=== PATIENT | female | born 1975 | race Caucasian/White ===

== ENCOUNTER → 2019-11-06 13:49 | Outpatient (CLI) | payer BC, SELFPAY ==
--- NOTE | ~2019-11-06 | MM_ITS ---
EXAMINATION: MM screening [facility] BI w [facility]ina HISTORY: Screening mammogram TECHNIQUE: Craniocaudal and mediolateral oblique 3-D tomosynthesis images were obtained and synthetic 2-D images were generated. CAD analysis was submitted and interpreted. COMPARISON: 12/03/2018, 10/24/2017, 09/29/2016 BREAST PARENCHYMAL COMPOSITION: There are scattered areas of fibroglandular density. FINDINGS: There is no evidence of suspicious mass, calcification, or architectural distortion to sugg est malignancy in either breast. There has been no suspicious interval change. IMPRESSION: 1. No mammographic evidence of malignancy. 2. Recommend routine screening mammography in one year. BI-RADS Category 1: Negative Reviewed, dictated and finalized at location B.
== END ==
PROVIDERS: PCP Family Medicine; Visit Provider Obstetrics & Gynecology
DX: Z12.31 Encounter for screening mammogram for malignant neoplasm of breast (principal)
CPT/HCPCS: 77063; 77067

== ENCOUNTER 2019-12-09 16:26 | Emergency (ER) | payer BC, MEDICAID, SELFPAY ==
--- NOTE | ~2019-12-09 | CT_ITS ---
EXAMINATION: CT abdomen pelvis w con DATE: 12/09/2019 17:31 INDICATION: Right upper quadrant abdominal pain TECHNIQUE: Computed tomography (CT) of the abdomen and pelvis was performed with 100 cc Omnipaque 350 intravenous contrast. Automated exposure control and iterative reconstruction technique were employe d. Exam dose: 410.11 mGy-cm total exam DLP. COMPARISON: None. FINDINGS: The lung bases are clear. Normal heart size. No pericardial or pleural effusion. Status post cholecystectomy. No hepatic, splenic, pancreatic, adrenal or renal space-occupying mass l esion is evident. There is a pinpoint nonobstructing right renal calculus. No ureteral calculus or hy droureteronephrosis is detected. Normal caliber of the abdominal aorta. No intraperitoneal or retroperitoneal or pelvic mass lesion or adenopathy or ascites. No bowel obstruction, bowel wall thickening, pneumatosis or intraperitoneal free air. Normal appendix. The uterus, adnexal areas and urinary bladder are unremarkable. Included skeletal structures are unremarkable. IMPRESSION: Status post cholecystectomy Pinpoint nonobstructing right renal calculus Reviewed, dictated and finalized at Location A. Reviewed, dictated and finalized at location A.
[2019-12-09 16:28] VITALS: BP 132/82; PULSE 93; RESP 18; TEMP 36.2; O2SAT 100
--- NOTE | 2019-12-09 16:52 | ED.ABDPAIN ---
HPI - Abdominal Pain General Chief Complaint: Abdominal Pain Stated Complaint: abd pain Time Seen by Provider: 12/09/19 16:51 History of Present Illness HPI narrative: RUQ abdominal pain for the past 2 weeks. Intermittent. Maybe worse in the evenings. Associated with mild nausea. Feels like the pain before havig her gall bladder removed. She has had episodes of both diarrhea and constipation over that time. No fever, dysuria, hematuria. Related Data Home Medications Medication Instructions Recorded Confirmed ibuprofen 800 mg tablet 800 mg PO TID PRN 04/07/19 11/05/19 ondansetron HCl 4 mg tablet 4 mg PO TID PRN tablet 04/07/19 11/05/19 vortioxetine 20 mg tablet 20 mg PO DAILY tablet 04/07/19 11/05/19 Allergies Allergy/AdvReac Type Severity Reaction Status Date / Time latex AdvReac Mild REDNESS/RASH Verified 12/09/19 16:48 WITH LATEX TAPE Review of Systems Review of Systems: All systems reviewed & are unremarkable except as noted in HPI and below Constitutional: Constitutional: Denies fever(s) Cardiovascular: Cardiovascular: Denies chest pain Respiratory: Respiratory: Denies dyspnea Gastrointestinal: Gastrointestinal: Reports abdominal pain, Reports constipation, Reports diarrhea, Reports nausea and Denies vomiting Genitourinary: Genitourinary: Denies hematuria and Denies dysuria Neurologic: Denies numbness and Denies weakness PMFSH Surgical History Surgical History Hx of cholecystectomy Family History Family History Grandparent Diabetes mellitus, Onset Age: 77 Depression, Onset Age: 79 Family history of rheumatoid arthritis Family history of cardiovascular disease Acute myocardial infarction Cerebrovascular accident, Onset Age: 77 Family history of Alzheimer's disease, Onset Age: 82 Family history of lung cancer Family history of dementia Family history of lupus erythematosus Mother Family history of cardiovascular disease Family history of arthritis Father Family history of arthritis Social History Social History Smoking status: Current every day smoker Alcohol intake: current Gender identity (if verbalized by the patient): Female Exam Const: General: healthy appearing, no acute distress and alert Orientation/consciousness: patient oriented x3 HENMT: Head: normal to inspection Neck: Neck: normal visual inspection and no lymphadenopathy Chest: Chest palpation & inspection: no tenderness Resp: Effort & Inspection: normal respiratory effort Auscultation: clear to auscultation bilaterally, no rales, no rhonchi and no wheezes Cardio: Jugular venous distension: no JVD Rate: regular rate Rhythm: regular rhythm Heart sounds: no murmurs GI: Inspection: non-distended GI Palp: Yes Soft to palpation, Yes Tenderness to palpation present (GI) (RUQ), No Guarding due to palpation present (GI) and No Rebound tenderness present Skin: General skin exam: normal color Neuro: General: patient oriented x3 and moves all extremities Speech: normal speech Extrem: General: no edema Psych: Appearance: well kempt Affect: normal affect Course Vital Signs Vital signs: Vital Signs Temperature 36.2 C L 12/09/19 16:28 Pulse Rate 93 12/09/19 16:28 Respiratory Rate 18 12/09/19 16:28 Blood Pressure 132/82 12/09/19 16:28 Pulse Oximetry 100 12/09/19 16:28 Temperature 36.2 C L 12/09/19 16:28 Pulse Rate 89 12/09/19 19:03 Respiratory Rate 18 12/09/19 19:03 Blood Pressure 128/72 12/09/19 19:03 Pulse Oximetry 98 12/09/19 19:03 MDM - Abdominal Pain Differential Diagnosis Differential diagnosis: Likely calculus of kidney, constipation and diverticulitis Medical Records Attestation: I reviewed the patient's medical records. Lab Data Attestation: I reviewed the patient's
[2019-12-09 16:58] LABS: Basophils Absolute Auto 0.1 K/mm3 (0.0-0.1); Basophils Percent Auto 0.6 % (0.2-1.2); Eosinophils Percent Auto 0.2 % (0-4.4); Hematocrit 41.6 % (37.0-47.0); Immature Granulocyte Absolute 0.02 K/mm3 (0.00-0.031); Immature Granulocyte Percent A 0.2 % (0-0.5); Lymphocytes Absolute Auto 2.01 K/mm3 (0.9-3.2); Lymphocytes Percent Auto 24.5 % (18.3-44.2); Mean Corpuscular HGB Conc 33.7 g/dl (32-36); Mean Corpuscular Hemoglobin 30.6 pg (26-34); Mean Platelet Volume 9.9 fl (7.4-10.4); Monocytes Absolute Auto 0.4 K/mm3 (0.1-0.6); Monocytes Percent Auto 5.4 % (2.6-8.5); Neutrophils Absolute Auto 5.7 K/mm3 (1.3-6.7); Neutrophils Percent Auto 69.1 % (45.5-73.1); Platelet Count Result 271 k/mm3 (150-375); Red Blood Count 4.57 M/mm3 (4.2-5.4); Red Cell Distribution Width 12.3 % (11.5-14.5); White Blood Count 8.2 K/mm3 (4.5-10.0)
[2019-12-09 17:01] LABS: Add Urine Microscopic? YES; Appearance Urine Clear (Clear); Bilirubin Urine Negative (Negative); Blood Urine Negative (Negative); Color Urine Straw (Yellow); Glucose Urine UA Negative (Negative); Ketones Urine Negative (Negative); Leukocyte Esterase Ur Negative LEU/UL (Negative); Mucus Urine Rare /lpf; Nitrate Urine Negative (Negative); Protein Urine Negative (Negative); Specific Grav Ur 1.008 (1.001-1.035); Squamous Epithelial Cell Urine Rare /hpf (Few); Urobilinogen Urine Negative mg/dL (<2.0); WBC Urine 0-3 /hpf
[2019-12-09 17:08] LABS: Alanine Aminotransferase 22 U/L (4-35); Albumin Level 4.7 g/dL (3.5-5.1); Alkaline Phosphatase 85 U/L (38-126); Anion Gap 9 mmol/L (8-16); Aspartate Amino Transferase 26 U/L (14-36); Bilirubin,Total 0.3 mg/dL (0.2-1.3); Blood Urea Nitrogen 14 mg/dL (7-17); Calcium 9.4 mg/dL (8.4-10.2); Carbon Dioxide 26 mmol/L (22-30); Chloride 104 mmol/L (98-107); Estimated CRCL calculation 60 ml/min; Estimated Glomerular Filt Rate 60; Glucose 101 mg/dL (65-105); Lipase 53 U/L (23-300); Potassium 3.8 mmol/L (3.4-5.0); Sodium 139 mmol/L (137-145)
[2019-12-09 17:18] LABS: Ovalocytes 1+ (NORMAL); Platelet Estimate Adequate (Adequate)
[2019-12-09 19:03] VITALS: BP 128/72; PULSE 89; RESP 18; O2SAT 98
== END 2019-12-09 19:04 | disposition home or self-care (01) ==
PROVIDERS: Emergency Provider Emergency Medicine; PCP Family Medicine
DX: R10.11 Right upper quadrant pain (principal); F17.200 Nicotine dependence, unspecified, uncomplicated; N20.0 Calculus of kidney
CPT/HCPCS: 36415; 74177; 80053; 81001; 81025; 83690; 85025; 99284; Q9967

== ENCOUNTER 2020-03-16 00:25 | Outpatient (CLI) | payer BC, MEDICAID, SELFPAY ==
[2020-03-16 18:51] LABS: SARS-CoV-2 RNA PCR Negative
== END 2020-03-16 00:26 | disposition home or self-care (01) ==
LOC: ANHCOVIDDT 00:25
PROVIDERS: PCP Family Medicine; Visit Provider Internal Medicine Gastroenterology
DX: Z01.812 Encounter for preprocedural laboratory examination (principal); Z20.828 Contact with and (suspected) exposure to other viral communicable diseases
CPT/HCPCS: 87635; C9803; U0003

== ENCOUNTER 2020-03-19 00:38 | Day surgery (SDC) | payer BC, MEDICAID, SELFPAY ==
[2020-03-10 14:03] VITALS: BMI 26.9
[2020-03-19] MEDS: LACTATED RINGERS 1,000 ML 150 ML IV CONT (09:37)
[2020-03-19 09:40] VITALS: BP 127/80; PULSE 91; RESP 22; TEMP 36.4; O2SAT 96
--- NOTE | 2020-03-19 09:45 | WPDANESEPPF ---
Anes - Initial Pre Proc Eval Procedure: Operation Date: 03/19/20 10:30 Proposed Procedures p Esophagogastroduodenoscopy&Screen Colon - Nahid Monroy MD Date/Time: 03/19/20 09:46 Surgeon: Nahid Monroy MD Pre Op Diagnosis: GERD, Neoplasm Screening Patient Data Age: 44 Gender: F Height: 5 ft 4 in Weight: 71 kg Last Vital Signs Temp 97.5 F L 03/19/20 09:40 Pulse 91 03/19/20 09:40 Resp 22 H 03/19/20 09:40 BP 127/80 03/19/20 09:40 Pulse Ox 96 03/19/20 09:40 Allergies Allergy/AdvReac Type Severity Reaction Status Date / Time latex AdvReac Mild REDNESS/RASH Verified 03/19/20 09:18 WITH LATEX TAPE Home Medications Medication Instructions Recorded Confirmed Type ibuprofen 800 mg tablet 800 mg PO TID PRN 04/07/19 03/10/20 History alprazolam 0.5 mg tablet 0.5 mg PO TID PRN #270 tablet 11/05/19 03/10/20 Rx omeprazole 40 mg capsule,delayed 40 mg PO DAILY #90 cap 01/16/20 03/19/20 Rx release vortioxetine 20 mg tablet 20 mg PO DAILY #90 tablet 01/19/20 03/19/20 Rx polyethylene glycol 3350 17 gram 238 g PO DAILY #1 ea 03/09/20 03/10/20 Rx oral powder packet methylphenidate HCl 20 mg PO DAILY PRN 03/10/20 03/10/20 History ondansetron HCl 4 mg PO Q4-5H PRN 03/19/20 03/19/20 History Patient hx anesthesia problems: none Family hx anesthesia problems: none PMFSH Past Medical History Medical History Irritable bowel syndrome with constipation and diarrhea Polyp of colon Tobacco use disorder, continuous Surgical History Surgical History Hx of cholecystectomy Family History Family History Grandparent Diabetes mellitus, Onset Age: 77 Depression, Onset Age: 79 Family history of rheumatoid arthritis Family history of cardiovascular disease Acute myocardial infarction Cerebrovascular accident, Onset Age: 77 Family history of Alzheimer's disease, Onset Age: 82 Family history of lung cancer Family history of dementia Family history of lupus erythematosus Mother Family history of cardiovascular disease Family history of arthritis Father Family history of arthritis Social History Social History Smoking packs per day: 0.5 Smoking cigarettes per day: 10.0 Years smoked: 25 Smoking pack-years: 12.50 Smoking status: Current every day smoker Tobacco type: cigarettes Alcohol intake: current Living arrangements: with family Gender identity (if verbalized by the patient): Female Spiritual care concerns: No Anes - Eval Final PreProcedure Day of Procedure 03/19/20 09:46 Patient weight: normal Heart: regular rate and rhythm Lungs: clear to auscultation Airway: Mallampati scale class II Neurological: alert and oriented Last oral intake: >/= 8 hours ASA classification: II Emergent: no Anesthetic plan: proceed Anesthesia type and monitoring: general GIVS and standard monitoring Informed Consent: The patient's anesthetic plan and its attendant risks and benefits were discussed with the patient/family/POA. Questions were solicited and answers provided to the satisfaction of the patient/family/POA.
--- NOTE | 2020-03-19 10:23 | PM.HPGS ---
History of Present Illness History of Present Illness Consent: Risks, benefits, and alternatives have been discussed and questions answered. Patient agrees to proceed with procedure. Chief complaint: GERD, Neoplasm Screening Narrative: Esther Allan is a 44 year old female with gerd and nausea on ppi but also using excedrin prn, also needs a colonoscopy Review of Systems Constitutional: Constitutional: Denies headache(s) and Denies weakness Eyes: Eyes: Denies blurry vision ENT: Reports Normal hearing present, Denies headache(s) and Denies neck pain Cardiovascular: Cardiovascular: Denies chest pain and Denies dyspnea Respiratory: Respiratory: Denies dyspnea Gastrointestinal: Gastrointestinal: Reports no additional gastrointestinal complaints Genitourinary: Genitourinary: Denies dysuria Musculoskeletal: Musculoskeletal: Denies neck pain Integumentary/Breasts: Skin/Breast: Denies dry skin Neurologic: Reports Normal hearing present, Denies headache(s) and Denies weakness Psychiatric: Psychiatric: Denies anxiety Endocrine: Endocrine: Denies change in body appearance Hematologic/Lymphatic: Hematologic/Lymphatic: Denies easy bleeding Allergic/Immunologic: Allergic/Immunologic: Denies urticaria PMFSH Past Medical History Medical History Irritable bowel syndrome with constipation and diarrhea Polyp of colon Tobacco use disorder, continuous Surgical History Surgical History Hx of cholecystectomy Family History Family History Grandparent Diabetes mellitus, Onset Age: 77 Depression, Onset Age: 79 Family history of rheumatoid arthritis Family history of cardiovascular disease Acute myocardial infarction Cerebrovascular accident, Onset Age: 77 Family history of Alzheimer's disease, Onset Age: 82 Family history of lung cancer Family history of dementia Family history of lupus erythematosus Mother Family history of cardiovascular disease Family history of arthritis Father Family history of arthritis Social History Social History Smoking packs per day: 0.5 Smoking cigarettes per day: 10.0 Years smoked: 25 Smoking pack-years: 12.50 Smoking status: Current every day smoker Tobacco type: cigarettes Alcohol intake: current Living arrangements: with family Gender identity (if verbalized by the patient): Female Spiritual care concerns: No Meds Home Medications and Allergies Home Medications Medication Instructions Recorded Confirmed Type ibuprofen 800 mg tablet 800 mg PO TID PRN 04/07/19 03/10/20 History alprazolam 0.5 mg tablet 0.5 mg PO TID PRN #270 tablet 11/05/19 03/10/20 Rx omeprazole 40 mg capsule,delayed 40 mg PO DAILY #90 cap 01/16/20 03/19/20 Rx release vortioxetine 20 mg tablet 20 mg PO DAILY #90 tablet 01/19/20 03/19/20 Rx polyethylene glycol 3350 17 gram 238 g PO DAILY #1 ea 03/09/20 03/10/20 Rx oral powder packet methylphenidate HCl 20 mg PO DAILY PRN 03/10/20 03/10/20 History ondansetron HCl 4 mg PO Q4-5H PRN 03/19/20 03/19/20 History Allergies Allergy/AdvReac Type Severity Reaction Status Date / Time latex AdvReac Mild REDNESS/RASH Verified 03/19/20 09:18 WITH LATEX TAPE Vital Signs Vital Signs - 24 hr 03/19/20 09:40 Temperature 97.5 F L Pulse Rate 91 Respiratory Rate 22 H Blood Pressure 127/80 Pulse Oximetry 96 Exam Const: General: comfortable and no acute distress HENMT: General nose exam: Normal nares present Eyes: General: appearance normal, both eyes and all related structures Neck: Neck: no JVD Resp: Auscultation: clear to auscultation bilaterally Cardio: Rate: regular rate Rhythm: regular rhythm GI: Inspection: non-distended GI Palp: Yes Soft to palpation Sk
[2020-03-19] MEDS: BENZOCAINE (*SP) 60 ML SPRAY CAN (HURRICAINE) 1 SPRAY MUCOUS MEM (10:24)
[2020-03-19 10:58] VITALS: BP 104/68; PULSE 67; RESP 19; O2SAT 100
[2020-03-19 11:08] VITALS: BP 110/77; PULSE 62; RESP 19; O2SAT 100
== END 2020-03-19 11:49 | disposition home or self-care (01) ==
PROVIDERS: PCP Family Medicine; Visit Provider Internal Medicine Gastroenterology
PROC: 0DJ08ZZ Inspection of Upper Intestinal Tract, Via Natural or Artificial Opening Endoscopic (ICD-10-PCS; CPT 43235; principal; 2020-03-19 10:30)
DX: Z12.11 Encounter for screening for malignant neoplasm of colon (principal); D12.0 Benign neoplasm of cecum; K29.50 Unspecified chronic gastritis without bleeding; K64.8 Other hemorrhoids; K21.9 Gastro-esophageal reflux disease without esophagitis; K58.2 Mixed irritable bowel syndrome; F17.210 Nicotine dependence, cigarettes, uncomplicated
CPT/HCPCS: 45380; 45385; 43239; 88305; J2704; J7120

== ENCOUNTER 2020-04-06 14:16 | Outpatient (CLI) | payer BC, MEDICAID, SELFPAY ==
--- NOTE | ~2020-04-06 | XR_ITS ---
EXAMINATION: XR chest 2V DATE: 04/06/2020 15:00 INDICATION: Tobacco use TECHNIQUE: PA and lateral views of the chest are obtained. COMPARISON: 05/20/2018 FINDINGS: The lungs are free of acute opacities. There is no pleural effusion or pneumothorax. The ca rdiomediastinal silhouette is normal. The visualized bones and soft tissues are unremarkable. IMPRESSION: 1. No acute cardiopulmonary abnormality. Reviewed, dictated and finalized at location A. 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
--- NOTE | 2020-04-06 14:30 | ECG_ITS ---
Measurements Intervals [place] Rate: 80 P: 42 MI: 159 QRS: 31 QRSD: 82 T: 24 QT: 369 QTc: 426 Interpretive Statements SINUS RHYTHM NORMAL ECG Electronically Signed On 04-06-2020 15:52:41 [employer] by Jann Koo D.O.
== END 2020-04-06 14:17 | disposition home or self-care (01) ==
PROVIDERS: PCP Family Medicine; Visit Provider Family Medicine
DX: Z01.818 Encounter for other preprocedural examination (principal); F17.209 Nicotine dependence, unspecified, with unspecified nicotine-induced disorders; M54.2 Cervicalgia; G89.29 Other chronic pain
CPT/HCPCS: 71046; 93005

== ENCOUNTER → 2020-07-07 09:10 | Outpatient (CLI) | payer OTHER, SELFPAY ==
[2020-07-07 23:00] LABS: SARS-CoV-2 RNA PCR Negative
== END ==
PROVIDERS: PCP Family Medicine; Visit Provider Family Medicine
DX: J01.00 Acute maxillary sinusitis, unspecified (principal); Z20.822 Contact with and (suspected) exposure to COVID-19
CPT/HCPCS: C9803; U0003; U0005

== ENCOUNTER 2020-07-07 10:54 | Emergency (ER) | payer OTHER, SELFPAY ==
--- NOTE | 2020-07-07 10:57 | ED.GENADULT ---
HPI - General Adult General Chief complaint: Upper Respiratory Infection Stated complaint: sore throat Time Seen by Provider: 07/07/20 10:56 Source: patient Mode of arrival: ambulatory Limitations: no limitations History of Present Illness HPI narrative: 44-year-old female patient presents to the [facility] with complaints of cold symptoms for the past 3 days. Patient states she has had headache, congestion, runny nose and a sore throat. Denies any fevers, body aches or chills. Patient states she did see her primary doctor yesterday and was given cefdinir. Patient states that she is prone to sinus infections and that her doctor also ordered her Covid test which she had done this morning. Patient states she is coming here today basically requesting a strep test. Related Data Allergies Allergy/AdvReac Type Severity Reaction Status Date / Time latex AdvReac Mild REDNESS/RASH Verified 07/07/20 11:15 WITH LATEX TAPE Review of Systems Review of Systems: Narrative: CONSTITUTIONAL: Denies fever, chills, or sweats. EYES: Denies visual changes, redness, or discharge. ENT: Positive rhinorrhea, congestion, sore throat, denies otalgia. CARDIOVASCULAR: Denies chest pain, palpitations, or edema. RESPIRATORY: Denies cough or dyspnea. GASTROINTESTINAL: Denies abdominal pain, nausea, vomiting, or diarrhea. GENITOURINARY: Denies dysuria or hematuria. SKIN: Denies rash or itching. MUSCULOSKELETAL: Denies back pain, joint pain, or myalgia. NEUROLOGIC: Positive headache, denies numbness, or weakness. PSYCHIATRIC: Denies anxiety or depression. [facility] Past Medical History Medical History Acute non-recurrent maxillary sinusitis BMI 27.0-27.9,adult Chronic constipation Chronic neck pain Gastritis Irritable bowel syndrome with constipation and diarrhea Polyp of colon Preoperative evaluation to rule out surgical contraindication Tobacco use disorder, continuous Surgical History Surgical History Hx of cholecystectomy Family History Family History Grandparent Diabetes mellitus, Onset Age: 77 Depression, Onset Age: 79 Family history of rheumatoid arthritis Family history of cardiovascular disease Acute myocardial infarction Cerebrovascular accident, Onset Age: 77 Family history of Alzheimer's disease, Onset Age: 82 Family history of lung cancer Family history of dementia Family history of lupus erythematosus Mother Family history of cardiovascular disease Family history of arthritis Father Family history of arthritis Social History Social History Smoking packs per day: 0.5 Smoking cigarettes per day: 10.0 Years smoked: 25 Smoking pack-years: 12.50 Smoking status: Current every day smoker Tobacco type: cigarettes Alcohol intake: current Gender identity (if verbalized by the patient): Female Spiritual care concerns: No Comments At the time of my signature I agree with nursing past medical history, surgical, social, and family history. There is no relevant family history pertinent to the presenting complaint. Exam Narrative: Exam Narrative: GENERAL: Well-appearing, well-nourished, and in no acute distress. HEAD: Normocephalic, atraumatic. EYES: PERRLA and EOMI. ENT: Nares with erythema and edema noted bilaterally, no rhinorrhea or epistaxis. Mucous membranes moist. Posterior pharynx with no erythema, tonsillar Darshana, exudates or lesions present. Bilateral TMs are clear no erythema or foreign bodies in the canal. NECK: Supple. No lymphadenopathy CHEST: Clear to auscultation. No respiratory distress. HEART: Regular rate and rhythm. No murmur heard. Normal peripheral pulses. ABDOMEN: Soft, nontender, nondistended, normal active bowel sounds. EXTREMITIES: Normal range of motion.
[2020-07-07 11:19] VITALS: BP 122/87; PULSE 88; RESP 18; TEMP 36.9; O2SAT 96
== END 2020-07-07 11:39 | disposition home or self-care (01) ==
PROVIDERS: Emergency Provider Nurse Practitioner Family; PCP Family Medicine
DX: J02.9 Acute pharyngitis, unspecified (principal); F17.210 Nicotine dependence, cigarettes, uncomplicated
CPT/HCPCS: 87081; 87880; 99213; G0463

== ENCOUNTER 2020-11-08 10:37 | Outpatient (CLI) | payer OTHER, SELFPAY ==
--- NOTE | ~2020-11-08 | MM_ITS ---
EXAMINATION: MM screening [facility] BI w [facility] HISTORY: Screening TECHNIQUE: Craniocaudal and mediolateral oblique 3-D tomosynthesis images were obtained and synthetic 2-D images were generated. CAD analysis was submitted and interpreted. COMPARISON: Comparison to multiple prior studies sequentially, with oldest reviewed study dated 06/24. BREAST PARENCHYMAL COMPOSITION: There are scattered areas of fibroglandular density. FINDINGS: There is no evidence of suspicious mass, calcification, or architectural distortion to sugg est malignancy in either breast. There has been no suspicious interval change. IMPRESSION: 1. No mammographic evidence of malignancy. 2. Recommend routine screening mammography in one year. BI-RADS Category 2: Benign finding(s). Reviewed, dictated and finalized at location A.
== END 2020-11-08 10:38 | disposition home or self-care (01) ==
LOC: ANHIMG 10:39
PROVIDERS: PCP Family Medicine; Visit Provider Obstetrics & Gynecology
DX: Z12.31 Encounter for screening mammogram for malignant neoplasm of breast (principal)
CPT/HCPCS: 77063; 77067

== ENCOUNTER → 2021-02-08 03:34 | Outpatient (CLI) | payer OTHER, SELFPAY ==
[2021-02-08 18:29] LABS: SARS-CoV-2 RNA PCR Negative
== END ==
PROVIDERS: PCP Family Medicine; Visit Provider Family Medicine
DX: R68.89 Other general symptoms and signs (principal); Z20.822 Contact with and (suspected) exposure to COVID-19
CPT/HCPCS: C9803; U0003; U0005

== ENCOUNTER → 2021-02-10 14:35 | Outpatient (CLI) | payer OTHER, SELFPAY ==
--- NOTE | ~2021-02-10 | XR_ITS ---
XR chest 2V DATE: 02/10/2021 14:47 INDICATION: Chronic cough TECHNIQUE: 2 views COMPARISON: 04/06/2022 view chest FINDINGS: Status post surgical interbody spinal fusion at C5-6 and C6-7. Bilateral hyperinflation. There is mild patchy infiltrate in the right mid and lower lung field. The remaining lung coppola appear clear. No pleural effusion or pulmonary vascular congestion or pneumotho rax. Normal heart size. IMPRESSION: Mild patchy infiltrate in the right mid and lower lung zones, suggesting mild pneumonia Reviewed, dictated and finalized at location A. IMPRESSION: Mild patchy infiltrate in the right mid and lower lung zones, sugge sting mild pneumonia
== END ==
PROVIDERS: PCP Family Medicine; Visit Provider Family Medicine
DX: R05.3 Chronic cough (principal); R91.8 Other nonspecific abnormal finding of lung field
CPT/HCPCS: 71046

== ENCOUNTER 2022-02-01 08:25 | Outpatient (CLI) | payer OTHER, SELFPAY ==
--- NOTE | ~2022-02-01 | MM_ITS ---
EXAMINATION: MM screening [facility] BI w raina HISTORY: Screening mammogram TECHNIQUE: Craniocaudal and mediolateral oblique 3-D tomosynthesis images were obtained and synthetic 2-D images were generated. CAD analysis was submitted and interpreted. COMPARISON: 11/08/2020, 11/06/2019, 12/03/2018 BREAST PARENCHYMAL COMPOSITION: The breasts are heterogeneously dense, which may obscure small masses . FINDINGS: No suspicious mass, calcification, or architectural distortion are identified in either nathanael ast to suggest malignancy. There has been no suspicious interval change. IMPRESSION: 1. No mammographic evidence of malignancy. 2. Recommend routine screening mammography in one year. BI-RADS Category 1: Negative Reviewed, dictated and finalized at location A.
== END 2022-02-01 08:26 | disposition home or self-care (01) ==
PROVIDERS: PCP Family Medicine; Visit Provider Obstetrics & Gynecology
DX: Z12.31 Encounter for screening mammogram for malignant neoplasm of breast (principal)
CPT/HCPCS: 77063; 77067

== ENCOUNTER 2022-05-31 11:45 | Emergency (ER) | payer OTHER, SELFPAY ==
[2022-05-31] VITALS (11 sets, daily range): BP systolic 110–141; BP diastolic 72–84; PULSE 81–82; RESP 16; TEMP 36.6; O2SAT 97–100
--- NOTE | ~2022-05-31 | CT_ITS ---
EXAMINATION: CT abdomen pelvis w con DATE: 05/31/2022 14:16 INDICATION: Colitis. TECHNIQUE: Computed tomography (CT) of the abdomen and pelvis was performed with 100 cc Omnipaque 350 intravenous contrast. The dose-length product was 348.84 mGy-cm. Automated exposure control and iter ative reconstruction technique were employed. COMPARISON: CT dated 12/09/2019 FINDINGS: Lung bases are unremarkable. No significant pleural or pericardial effusion. Heart size is normal. There is a benign 7 mm fat-containing lesion in the right hepatic lobe, unchanged. Status pos t cholecystectomy. There is hepatomegaly. The spleen, pancreas, adrenal glands and kidneys are unrema rkable. There is extensive abnormal mural thickening of the descending colon, sigmoid colon and rectu m, consistent with colitis, most likely infectious or inflammatory. No significant vascular abnormali ty. No lymphadenopathy. The celiac axis, SMA, renal arteries and KITTY are widely patent. No free air o r free fluid. IMPRESSION: 1. Significant abnormal mural thickening of the descending colon, sigmoid colon and rectum, consisten t with colitis. Reviewed, dictated and finalized at location B. 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 Significant abnormal mural thickening of the descending colon, sigmoid colon and rectum, consistent with colitis.
--- NOTE | 2022-05-31 13:30 | PC.NURSE ---
EDP at bedside to assess pt.
[2022-05-31 13:34] LABS: Basophils Absolute Auto 0.1 K/mm3 (0.0-0.1); Basophils Percent Auto 1.1 % (0.2-1.2); Eosinophils Absolute Auto 0.1 K/mm3 (0-0.3); Eosinophils Percent Auto 0.8 % (0-4.4); Hematocrit 40.5 % (37.0-47.0); Hemoglobin 13.5 g/dL (12.0-15.0); Immature Granulocyte Absolute 0.03 K/mm3 (0.00-0.031); Immature Granulocyte Percent A 0.4 % (0-0.5); Lymphocytes Percent Auto 13.4 % (18.3-44.2); Mean Corpuscular HGB Conc 33.3 g/dl (32-36); Mean Corpuscular Hemoglobin 29.9 pg (26-34); Mean Corpuscular Volume 89.8 fl (80-100); Mean Platelet Volume 9.6 fl (7.4-10.4); Monocytes Absolute Auto 0.9 K/mm3 (0.1-0.6); Monocytes Percent Auto 11.7 % (2.6-8.5); Neutrophils Absolute Auto 5.4 K/mm3 (1.3-6.7); Neutrophils Percent Auto 72.6 % (45.5-73.1); Platelet Count Result 232 k/mm3 (150-375); Red Blood Count 4.51 M/mm3 (4.2-5.4); Red Cell Distribution Width 13.4 % (11.5-14.5); White Blood Count 7.5 K/mm3 (4.5-10.0)
[2022-05-31 13:36] LABS: Appearance Urine Clear (Clear); Bilirubin Urine Negative (Negative); Blood Urine Trace-lysed (Negative); Color Urine Yellow (Yellow); Glucose Urine UA Negative (Negative); Ketones Urine Negative (Negative); Leukocyte Esterase Ur Negative LEU/UL (Negative); Nitrate Urine Negative (Negative); Protein Urine Negative (Negative); Specific Grav Ur <= 1.005 (1.001-1.035); Urobilinogen Urine 0.2 mg/dL (<2.0); pH Urine 6.5 (5.0-9.0)
[2022-05-31 13:40] LABS: Add Urine Microscopic? YES; RBC Urine 0-2 /hpf (0-2); WBC Urine 0-3 /hpf
[2022-05-31] MEDS: ONDANSETRON INJ 4 MG/2 ML VIAL IV PUSH (13:40)
[2022-05-31] MEDS: SODIUM CHLORIDE 0.9% IV 1,000 ML 150 ML IV CONT (13:40)
[2022-05-31 13:54] LABS: Alanine Aminotransferase 18 U/L (6-35); Albumin Level 4.3 g/dL (3.5-5.1); Alkaline Phosphatase 79 U/L (38-126); Anion Gap 6 mmol/L (8-16); Aspartate Amino Transferase 23 U/L (14-36); Bilirubin,Total 0.4 mg/dL (0.2-1.3); Blood Urea Nitrogen 13 mg/dL (7-17); Calcium 9.3 mg/dL (8.4-10.2); Carbon Dioxide 26 mmol/L (22-30); Chloride 103 mmol/L (98-107); Estimated CRCL calculation 95 ml/min; Estimated Glomerular Filt Rate > 60; Glucose 95 mg/dL (65-110); Lipase 31 U/L (23-300); Potassium 3.4 mmol/L (3.4-5.0); Sodium 135 mmol/L (137-145)
--- NOTE | 2022-05-31 14:51 | ED.ABDPAIN ---
HPI - Abdominal Pain General Chief Complaint: Abdominal Pain Stated Complaint: diarrhea. blood in stool Time Seen by Provider: 05/31/22 13:27 Source: patient Mode of arrival: ambulatory Limitations: no limitations History of Present Illness HPI narrative: 46-year-old otherwise healthy here with complaints of lower abdominal pain, diarrhea for past few days started to have blood in her stool since this morning. She denies any fever or chills. No previous history of diverticulosis or diverticulitis she denies being lightheaded or dizzy. Onset (ago): day(s) (3) Location: suprapubic Severity: mild Quality: aching Radiation: none Migration to: no migration Exacerbating factors: nothing Relieving factors: nothing Associated symptoms: denies other symptoms Related Data Allergies Allergy/AdvReac Type Severity Reaction Status Date / Time latex AdvReac Mild REDNESS/RASH Verified 05/31/22 13:40 WITH LATEX TAPE Review of Systems Review of Systems: All systems reviewed & are unremarkable except as noted in HPI and below Constitutional: Constitutional: Reports no additional constitutional complaints Eyes: Eyes: Reports no additional eye complaints ENT: Reports system reviewed and no additional complaints, except as documented Cardiovascular: Cardiovascular: Reports no additional cardiovascular complaints Respiratory: Respiratory: Reports no additional respiratory complaints Gastrointestinal: Gastrointestinal: Reports as per HPI Musculoskeletal: Musculoskeletal: Reports no additional musculoskeletal complaints Neurologic: Reports system reviewed and no additional complaints, except as documented [facility] Past Medical History Medical History Acute non-recurrent maxillary sinusitis BMI 24.0-24.9, adult BMI 25.0-25.9,adult BMI 27.0-27.9,adult BMI 28.0-28.9,adult Chronic constipation Chronic cough Chest x-ray 02/10/2021 with mild patchy infiltrates right middle lobe and right lower lobe Chronic neck pain Chronic nonallergic rhinitis Community acquired pneumonia (~02/10/21) chest x-ray 02/10/2021 with right middle lobe and right lower lobe patchy infiltrate Fatigue Gastritis (03/19/20) gastritis on EGD 03/19/2020. Irritable bowel syndrome with constipation and diarrhea Low ferritin (02/02/22) iron 57 with 16% saturation and ferritin low at 15 on 02/02/2022 with hemoglobin 14.7. Nausea (~05/30/22) Overweight (BMI 25.0-29.9) Polyp of colon (03/19/20) Colon polyps on colonoscopy 03/19/2020 with recheck in 5 years, Dr. Cowart. Preoperative evaluation to rule out surgical contraindication Protein in urine (02/02/22) 2+ protein on urinalysis 02/02/2022. Seasonal allergic rhinitis Tobacco use disorder, continuous Surgical History Surgical History Hx of cholecystectomy Family History Family History Grandparent Diabetes mellitus, Onset Age: 77 Depression, Onset Age: 79 Family history of rheumatoid arthritis Family history of cardiovascular disease Acute myocardial infarction Cerebrovascular accident, Onset Age: 77 Family history of Alzheimer's disease, Onset Age: 82 Family history of lung cancer Family history of dementia Family history of lupus erythematosus Mother Family history of cardiovascular disease Family history of arthritis Father Family history of arthritis Social History Social History Smoking packs per day: 0.5 Smoking cigarettes per day: 10.0 Years smoked: 25 Smoking pack-years: 12.50 Smoking status: Current every day smoker Tobacco type: cigarettes Alcohol intake: current Living arrangements: with family Gender identity (if verbalized by the patient): Female Spiritual care concerns: No Exam Narrative: GENERAL: Well-appearing, well-nouris
== END 2022-05-31 15:16 | disposition home or self-care (01) ==
PROVIDERS: Emergency Medicine; Emergency Provider Family Medicine; PCP Family Medicine
DX: K52.9 Noninfective gastroenteritis and colitis, unspecified (principal); F17.210 Nicotine dependence, cigarettes, uncomplicated
CPT/HCPCS: 36415; 74177; 80053; 81001; 81025; 83690; 85025; 96361; 96374; 99284; J2405; J7030; Q9967

== ENCOUNTER 2022-06-07 13:26 | Outpatient (CLI) | payer OTHER, SELFPAY ==
--- NOTE | ~2022-06-07 | XR_ITS ---
XR abdomen/kub 1V 06/07/2022 11:31 INDICATION: Abdominal bloating TECHNIQUE: KUB COMPARISON: None FINDINGS: Bowel gas pattern is normal. There is no evidence of free air, mass, organomegaly, ascites or obstruction. No abnormal calculi are seen. The bones appear intact. There are cholecystectomy c lips. IMPRESSION: 1: No acute abdominal abnormality identified. Reviewed, dictated and finalized at location B. 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
[2022-06-07 15:05] LABS: Toxigenic C. Diff NEGATIVE (NEGATIVE)
[2022-06-16 20:37] LABS: Calprotectin, Stool 1530 mcg/g
== END 2022-06-07 13:27 | disposition home or self-care (01) ==
LOC: ANHIMG 13:26
PROVIDERS: PCP Family Medicine; Visit Provider Nurse Practitioner
DX: R14.0 Abdominal distension (gaseous) (principal); K52.9 Noninfective gastroenteritis and colitis, unspecified
CPT/HCPCS: 74018; 83993; 87045; 87177; 87209; 87269; 87427; 87493

== ENCOUNTER 2022-07-05 07:29 | Outpatient (NON) | payer OTHER, SELFPAY | END 2022-07-05 07:30 | disposition home or self-care (01) | PROVIDERS: PCP Family Medicine; Visit Provider Internal Medicine Gastroenterology | DX: K52.9 Noninfective gastroenteritis and colitis, unspecified (principal) | CPT/HCPCS: 88305 ==

== ENCOUNTER 2022-07-05 10:58 | Day surgery (SDC) | payer OTHER, SELFPAY ==
[2022-06-23 11:11] VITALS: BMI 25.2
--- NOTE | 2022-07-05 10:12 | WPDANESEPPF ---
Anes - Initial Pre Proc Eval Procedure: Operation Date: 07/05/22 12:30 Proposed Procedures p Diagnostic Colonoscopy - Nahid Monroy MD Date/Time: 07/05/22 10:12 Surgeon: Nahid Monroy MD Pre Op Diagnosis: Colitis Patient Data Age: 46 Gender: F Height: 1.61 m Weight: 65.5 kg Allergies Allergy/AdvReac Type Severity Reaction Status Date / Time latex AdvReac Mild REDNESS/RASH Verified 06/07/22 10:11 WITH LATEX TAPE Home Medications Medication Instructions Recorded Confirmed Type alprazolam 0.5 mg tablet (Xanax) 0.5 mg PO TID PRN anxiety #270 tabs 10/20/20 06/23/22 Rx omeprazole 40 mg capsule,delayed 40 mg PO DAILY #90 caps 07/21/21 06/23/22 Rx release aripiprazole 2 mg tablet (Abilify) 2 mg PO DAILY #90 tabs 09/27/21 06/23/22 Rx escitalopram oxalate 20 mg tablet 20 mg PO DAILY #90 tabs 10/26/21 06/23/22 Rx (Lexapro) dextroamphetamine-amphetamine 10 10 mg PO BID #60 tabs 06/27/22 Rx mg tablet (Adderall) Patient hx anesthesia problems: none Family hx anesthesia problems: none Results Review: All pre-operative results and documents have been reviewed as part of the pre-operative evaluation. [facility] Past Medical History Medical History (Updated 06/07/22 @ 15:50 by Claudio Valle MD) Abdominal distension Acute non-recurrent maxillary sinusitis BMI 24.0-24.9, adult BMI 25.0-25.9,adult BMI 27.0-27.9,adult BMI 28.0-28.9,adult Chronic constipation Chronic cough Chest x-ray 02/10/2021 with mild patchy infiltrates right middle lobe and right lower lobe Chronic neck pain Chronic nonallergic rhinitis Colitis C difficile toxin 06/07/22. KUB negative 06/07/2022. Community acquired pneumonia (~02/10/21) chest x-ray 02/10/2021 with right middle lobe and right lower lobe patchy infiltrate Fatigue Gastritis (03/19/20) gastritis on EGD 03/19/2020. Hx of adenomatous colonic polyps Irritable bowel syndrome with constipation and diarrhea Low ferritin (02/02/22) iron 57 with 16% saturation and ferritin low at 15 on 02/02/2022 with hemoglobin 14.7. Nausea (~05/30/22) Overweight (BMI 25.0-29.9) Polyp of colon (03/19/20) Colon polyps on colonoscopy 03/19/2020 with recheck in 5 years, Dr. Cowart. Preoperative evaluation to rule out surgical contraindication Protein in urine (02/02/22) 2+ protein on urinalysis 02/02/2022. Seasonal allergic rhinitis Tobacco use disorder, continuous Surgical History Surgical History Hx of cholecystectomy Family History Family History Grandparent Diabetes mellitus, Onset Age: 77 Depression, Onset Age: 79 Family history of rheumatoid arthritis Family history of cardiovascular disease Acute myocardial infarction Cerebrovascular accident, Onset Age: 77 Family history of Alzheimer's disease, Onset Age: 82 Family history of lung cancer Family history of dementia Family history of lupus erythematosus Mother Family history of cardiovascular disease Family history of arthritis Father Family history of arthritis Social History Social History Smoking packs per day: 0.5 Smoking cigarettes per day: 10.0 Years smoked: 25 Smoking pack-years: 12.50 Smoking status: Current every day smoker Tobacco type: e-cigarettes/vaping Alcohol intake: current Substance use: never Substance use type: does not use Living arrangements: with family Gender identity (if verbalized by the patient): Female Spiritual care concerns: No Anes - Eval Final PreProcedure Day of Procedure 07/05/22 10:12 Patient weight: normal Heart: regular rate and rhythm Lungs: clear to auscultation Airway: Mallampati scale class II Neurological: alert and oriented Last oral intake: >/= 8 hours ASA classification: II Emergent: no Anesthetic plan: proc
[2022-07-05 11:20] VITALS: BP 126/79; PULSE 72; RESP 20; TEMP 37; O2SAT 100
[2022-07-05] MEDS: LACTATED RINGERS 1,000 ML 150 ML IV CONT (11:41)
--- NOTE | 2022-07-05 12:31 | PM.HPGS ---
History of Present Illness History of Present Illness Consent: Risks, benefits, and alternatives have been discussed and questions answered. Patient agrees to proceed with procedure. Chief complaint: Colitis Narrative: Esther Allan is a 46 year old female with episode of colitis, treated with oral abx, now back to her baseline. Last colonoscopy 2019 with polyps Review of Systems Constitutional: Constitutional: Denies headache(s) and Denies weakness Eyes: Eyes: Denies blurry vision ENT: Reports Normal hearing present, Denies headache(s) and Denies neck pain Cardiovascular: Cardiovascular: Denies chest pain and Denies dyspnea Respiratory: Respiratory: Denies dyspnea Gastrointestinal: Gastrointestinal: Reports no additional gastrointestinal complaints Genitourinary: Genitourinary: Denies dysuria Musculoskeletal: Musculoskeletal: Denies neck pain Integumentary/Breasts: Skin/Breast: Denies dry skin Neurologic: Reports Normal hearing present, Denies headache(s) and Denies weakness Psychiatric: Psychiatric: Denies anxiety Endocrine: Endocrine: Denies change in body appearance Hematologic/Lymphatic: Hematologic/Lymphatic: Denies easy bleeding Allergic/Immunologic: Allergic/Immunologic: Denies urticaria [facility] Past Medical History Medical History (Updated 06/07/22 @ 15:50 by Claudio Valle MD) Abdominal distension Acute non-recurrent maxillary sinusitis BMI 24.0-24.9, adult BMI 25.0-25.9,adult BMI 27.0-27.9,adult BMI 28.0-28.9,adult Chronic constipation Chronic cough Chest x-ray 02/10/2021 with mild patchy infiltrates right middle lobe and right lower lobe Chronic neck pain Chronic nonallergic rhinitis Colitis C difficile toxin 06/07/22. KUB negative 06/07/2022. Community acquired pneumonia (~02/10/21) chest x-ray 02/10/2021 with right middle lobe and right lower lobe patchy infiltrate Fatigue Gastritis (03/19/20) gastritis on EGD 03/19/2020. Hx of adenomatous colonic polyps Irritable bowel syndrome with constipation and diarrhea Low ferritin (02/02/22) iron 57 with 16% saturation and ferritin low at 15 on 02/02/2022 with hemoglobin 14.7. Nausea (~05/30/22) Overweight (BMI 25.0-29.9) Polyp of colon (03/19/20) Colon polyps on colonoscopy 03/19/2020 with recheck in 5 years, Dr. Cowart. Preoperative evaluation to rule out surgical contraindication Protein in urine (02/02/22) 2+ protein on urinalysis 02/02/2022. Seasonal allergic rhinitis Tobacco use disorder, continuous Surgical History Surgical History Hx of cholecystectomy Family History Family History Grandparent Diabetes mellitus, Onset Age: 77 Depression, Onset Age: 79 Family history of rheumatoid arthritis Family history of cardiovascular disease Acute myocardial infarction Cerebrovascular accident, Onset Age: 77 Family history of Alzheimer's disease, Onset Age: 82 Family history of lung cancer Family history of dementia Family history of lupus erythematosus Mother Family history of cardiovascular disease Family history of arthritis Father Family history of arthritis Social History Social History Smoking packs per day: 0.5 Smoking cigarettes per day: 10.0 Years smoked: 25 Smoking pack-years: 12.50 Smoking status: Current every day smoker Tobacco type: e-cigarettes/vaping Alcohol intake: current Substance use: never Substance use type: does not use Living arrangements: with family Gender identity (if verbalized by the patient): Female Spiritual care concerns: No Meds Home Medications and Allergies Home Medications Medication Instructions Recorded Confirmed Type alprazolam 0.5 mg tablet (Xanax) 0.5 mg PO TID PRN anxiety #270 tabs 10/20/20 07/05/22 Rx omeprazole 40 mg capsule,delayed 40 mg PO DAILY #90 caps 07/08
[2022-07-05 12:57] VITALS: BP 99/71; PULSE 63; RESP 16; O2SAT 100
[2022-07-05 13:07] VITALS: BP 114/76; PULSE 64; RESP 16; O2SAT 100
[2022-07-05 13:17] VITALS: BP 128/85; PULSE 78; RESP 18; O2SAT 100
--- NOTE | 2022-07-05 15:29 | WPDANESPN ---
Anes - Prog Note Post-Op Date/Time: 07/05/22 15:29 Cardiovascular status: normal Respiratory status: normal Airway patency: baseline Mental status: baseline Post-Op hydration status: normal Vital Signs: Last Vital Signs Temp 37.0 C 07/05/22 11:20 Pulse 78 07/05/22 13:17 Resp 18 07/05/22 13:17 BP 128/85 07/05/22 13:17 Pulse Ox 100 07/05/22 13:17 O2 Del Method Room Air 07/05/22 13:17 Pain Score (VAS): 0 I/O: Intake & Output 07/04/22 07/05/22 07/05/22 23:59 07:59 15:59 Intake Total 895 Balance 895 Post-procedural complaints: none Patient Feedback: Patient satisfied with anesthetic care.
== END 2022-07-05 13:45 | disposition home or self-care (01) ==
PROVIDERS: PCP Family Medicine; Visit Provider Internal Medicine Gastroenterology
PROC: 0DJD8ZZ Inspection of Lower Intestinal Tract, Via Natural or Artificial Opening Endoscopic (ICD-10-PCS; CPT 45378; principal; 2022-07-05 12:30)
DX: K52.9 Noninfective gastroenteritis and colitis, unspecified (principal)
CPT/HCPCS: 45380

== ENCOUNTER 2023-02-20 08:42 | Outpatient (CLI) | payer OTHER, SELFPAY ==
--- NOTE | 2023-03-13 14:26 | WPDHOMESLEEP ---
Sleep Study - Home Unattended Date of Study: 02/20/23 Ordering Provider: Claudio Valle MD Interpreting Provider: Carmelita Leyva, DO Home Sleep Study Type: Watch PAT Height: 1.63 m Weight: 75.75 kg Body Mass Index: 28.6 Neck Circumference (inches): 14.5 Barnett: 15 Reason for Sleep Study Daytime hypersomnia Sleep History The patient is a 47-year-old female with prediabetes, GERD, seasonal allergies, depression, anxiety, hypothyroidism, chronic neck pain, irritable bowel syndrome and tobacco use disorder that had a sleep study ordered by her primary care physician for evaluation of sleep apnea. 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 The patient denies awakening from sleep short of breath. She frequently awakens at night with heartburn, belching or cough. She frequently snores and is frequently loud enough that others complain. She occasionally has trouble sleeping when she has a cold. She rarely wakes up gasping for air throughout the night. She rarely has breathing problems at night observed by herself or others. She frequently sweats excessively at night. She rarely has heart palpitations or irregular heartbeats during the night. She constantly falls asleep during the day but never while driving. She rarely experiences loss of muscle tone when extremely emotional. She constantly has trouble at school or work due to sleepiness. She denies sleep paralysis and hypnagogic/ hypnopompic hallucinations. She denies feeling afraid of going to sleep. She denies having nightmares. She frequently remembers her dreams. She constantly has thoughts racing through her mind. She frequently feels sad, depressed and anxious. She frequently has muscular tension. She occasionally notices parts of her body jerk. She rarely kicks during the night. She rarely has crawling and aching feelings in her legs rarely has leg pain during night. She occasionally grinds her teeth during sleep and frequently awakens with morning jaw pain. She is frequently bothered by pain during the day but rarely awakened by pain during the night. She occasionally wakes up feeling stiff in the morning. She rarely wakes up with sore or achy muscles. She rarely wakes up with pain in the neck, spine or other joints. She goes to bed at 10:00 p.m. on weekdays and at 11:00 p.m. on the weekends. It takes her 30-45 minutes to fall asleep. She wakes up 1-2 times throughout the night for unknown reasons and they can take 60-90 minutes for her to fall back asleep. She wakes up at 5:00 a.m. on weekdays and at 7:00 a.m. on the weekends. She typically gets 8 hours of sleep per night. He will stay in bed less than 5 minutes after waking up in the morning on weekdays. She currently lives with her and 2 children. She will consume caffeinated beverages within 2 hours of bedtime. She denies engaging in physical exercise before bedtime. She will read watch television before falling asleep. She will take naps in the afternoon or the evening but they are not refreshing. She consumes 4 caffeinated beverages per day. She currently vapes. She denies alcohol and recreational drug use. COUNT INCLUDES THE [facility] Past Medical History Medical History Abdominal distension Acute non-recurrent maxillary sinusitis BMI 24.0-24.9, adult BMI 25.0-25.9,adult BMI 27.0-27.9,adult BMI 28.0-28.9,adult BMI 29.0-29.9,adult Chronic constipation Chronic cough Chest x-ray 02/10/2021 with mild patchy infiltrates right middle lobe and right lower lobe Chronic neck pain Chronic nonallergic rhinitis Colitis C difficile toxin 06/07/22. KUB negative 06/07/2022. Community acquired pneumonia (~02/10/21) chest x-ray 02/10/2021 with right middle lobe and right lower lobe patchy infiltrate Elevated hemoglobin A1c (01/24/23) hemoglobin A1c 5.8 on 01/24/2023 Fatigue Gastritis (03/19/20) gastritis on EGD 03/19/2020. Hx of adenomatous colonic polyps
[2023-03-13 14:39] VITALS: BMI 28.6
== END 2023-02-21 08:00 | disposition home or self-care (01) ==
LOC: ANHCSM 08:45
PROVIDERS: PCP Family Medicine; Visit Provider Family Medicine
DX: G47.10 Hypersomnia, unspecified (principal)
CPT/HCPCS: 95800

== ENCOUNTER 2023-04-25 08:53 | Outpatient (CLI) | payer OTHER, SELFPAY ==
--- NOTE | ~2023-04-25 | MM_ITS ---
EXAMINATION: MM screening romina BI w raina HISTORY: Screening TECHNIQUE: Craniocaudal and mediolateral oblique 3-D tomosynthesis images were obtained and synthetic 2-D images were generated. CAD analysis was submitted and interpreted. COMPARISON: Comparison to multiple prior studies sequentially, with oldest reviewed study dated 09/29. BREAST PARENCHYMAL COMPOSITION: Breast composed of scattered areas of fibroglandular density FINDINGS: There are partially obscured masses in the upper outer quadrant of the right breast and low er inner quadrant of the left breast anteriorly. There are no suspicious calcifications or architectu ral distortion. IMPRESSION: 1. Bilateral breast masses. 2. Additional spot compression and mediolateral views with possible follow-up breast ultrasound recom mended. BI-RADS Category 0: Incomplete: Needs additional imaging evaluation. Reviewed, dictated and finalized at location A. O MANAGER IMPRESSION: 1. Bilateral breast masses. 2. Additional spot compression and mediolateral views with possible follow-up b reast ultrasound recommended. BI-RADS Category 0: Incomplete: Needs additional imaging evaluation.
== END 2023-04-25 08:54 | disposition home or self-care (01) ==
LOC: ANHIMG 08:57
PROVIDERS: PCP Family Medicine; Visit Provider Obstetrics & Gynecology
DX: Z12.31 Encounter for screening mammogram for malignant neoplasm of breast (principal); R92.8 Other abnormal and inconclusive findings on diagnostic imaging of breast
CPT/HCPCS: 77063; 77067

== ENCOUNTER 2023-05-02 15:52 | Outpatient (CLI) | payer OTHER, SELFPAY ==
[2023-05-02 17:31] LABS: Toxigenic C. Diff NEGATIVE (NEGATIVE)
[2023-05-10 18:08] LABS: Calprotectin, Stool 355 mcg/g
== END 2023-05-02 15:53 | disposition home or self-care (01) ==
LOC: ANHLAB 15:53
PROVIDERS: PCP Family Medicine; Visit Provider Nurse Practitioner
DX: K62.5 Hemorrhage of anus and rectum (principal); R19.7 Diarrhea, unspecified
CPT/HCPCS: 83993; 87045; 87427; 87449; 87493

== ENCOUNTER 2023-05-09 08:15 | Outpatient (RCR) | payer OTHER, SELFPAY ==
[2023-03-15 13:48] VITALS: BMI 30.2
[2023-05-09 08:31] VITALS: BMI 30.4
[2023-05-09 09:13] VITALS: BMI 30.4
== END 2023-06-04 10:03 | disposition home or self-care (01) ==
LOC: ANHDMC 08:15
PROVIDERS: PCP Family Medicine; Visit Provider Family Medicine
DX: R73.09 Other abnormal glucose (principal); R73.03 Prediabetes; Z71.3 Dietary counseling and surveillance
CPT/HCPCS: 97802; 97803

== ENCOUNTER 2023-06-20 08:41 | Outpatient (CLI) | payer OTHER, SELFPAY ==
--- NOTE | ~2023-06-20 | US_ITS ---
Limited Abdominal Sonogram: Real-time sonographic imaging of the right upper quadrant was performed. Clinical History: Hepatomegaly Findings: The liver appears normal with no evidence of mass lesion or bile duct dilatation. Main por marlon vein demonstrates normal direction of flow. Liver measures 18.1 cm in length. The gallbladder is absent, compatible prior cholecystectomy. The common bile duct measures 5 mm. The visualized pancrea s, aorta, and IVC are unremarkable. Impression: Mildly enlarged liver at 18.1 cm in length. Status post cholecystectomy. Reviewed, dictated and finalized at location . Impression: Mildly enlarged liver at 18.1 cm in length. Status post cholecystectomy.
== END 2023-06-20 08:42 | disposition home or self-care (01) ==
PROVIDERS: PCP Family Medicine; Visit Provider Nurse Practitioner
DX: R16.0 Hepatomegaly, not elsewhere classified (principal); Z90.49 Acquired absence of other specified parts of digestive tract
CPT/HCPCS: 76705

== ENCOUNTER 2023-06-28 06:29 | Day surgery (SDC) | payer OTHER, SELFPAY ==
[2023-06-07 11:55] VITALS: BMI 30.4
--- NOTE | 2023-06-28 07:29 | WPDANESEPPF ---
Anes - Initial Pre Proc Eval Procedure: Operation Date: 06/28/23 08:30 Proposed Procedures p Esophagogastroduodenoscopy - Antwan White MD s Flexible Sigmoidoscopy - Antwan White MD Date/Time: 06/28/23 07:29 Surgeon: Antwan White MD Pre Op Diagnosis: Nausea, Diarrhea, Hemorrhage of Anus & Rectum Patient Data Age: 47 Gender: F Height: 1.63 m Weight: 80.286 kg Allergies Allergy/AdvReac Type Severity Reaction Status Date / Time latex AdvReac Mild REDNESS/RASH Verified 06/28/23 07:20 WITH LATEX TAPE Macrobid Allergy Intermediate Rash Uncoded 06/28/23 07:20 Home Medications Medication Instructions Recorded Confirmed Type alprazolam 0.5 mg tablet (Xanax) 0.5 mg PO TID PRN anxiety #270 tabs 10/03/22 06/28/23 Rx aripiprazole 2 mg tablet (Abilify) 2 mg PO DAILY #90 tabs 12/26/22 06/28/23 Rx levothyroxine 50 mcg tablet 50 mcg PO . q.a.m. 02/06/23 06/28/23 History omeprazole 40 mg capsule,delayed 40 mg PO DAILY #90 caps 02/26/23 06/28/23 Rx release hydrocortisone acetate 25 mg 25 mg RECTAL BID #20 ea 05/02/23 06/28/23 Rx rectal suppository (Anusol-HC) meloxicam 15 mg tablet 15 mg PO DAILY PRN pain #90 tabs 05/16/23 06/28/23 Rx vortioxetine 20 mg tablet 20 mg PO DAILY #90 tabs 05/16/23 06/28/23 Rx (Trintellix) eszopiclone 3 mg tablet 3 mg PO QHS #1 tablet 05/17/23 06/28/23 Rx Patient hx anesthesia problems: none Family hx anesthesia problems: none Results Review: All pre-operative results and documents have been reviewed as part of the pre-operative evaluation. [facility] Past Medical History Medical History (Updated 06/19/23 @ 16:39 by Kayleigh Pantoja, ASHOK) Abdominal distension Acute non-recurrent maxillary sinusitis BMI 24.0-24.9, adult BMI 25.0-25.9,adult BMI 27.0-27.9,adult BMI 28.0-28.9,adult BMI 29.0-29.9,adult Bright red blood per rectum Chronic constipation Chronic cough Chest x-ray 02/10/2021 with mild patchy infiltrates right middle lobe and right lower lobe Chronic neck pain Chronic nonallergic rhinitis Colitis C difficile toxin 06/07/22. KUB negative 06/07/2022. Community acquired pneumonia (~02/10/21) chest x-ray 02/10/2021 with right middle lobe and right lower lobe patchy infiltrate Decreased appetite Diarrhea Elevated fasting glucose fasting glucose 105 with hemoglobin A1c 5.6 on 05/10/2023. Elevated fecal calprotectin Elevated hemoglobin A1c (01/24/23) hemoglobin A1c 5.8 on 01/24/2023. Glucose 105 with hemoglobin A1c 5.6 on 05/10/2023. Enlarged liver Fatigue Gastritis (03/19/20) gastritis on EGD 03/19/2020. Hx of adenomatous colonic polyps Mild colitis 07/05/2022 on colonoscopy with no polyps. Recheck in 5 years. Hypothyroidism, unspecified (02/01/23) TSH 4.44 with free T4 0.8 on 02/01/2023. Iron deficiency Irritable bowel syndrome with constipation and diarrhea Low ferritin (02/02/22) iron 57 with 16% saturation and ferritin low at 15 on 02/02/2022 with hemoglobin 14.7. Iron 42 with 13% saturation and ferritin 10 with hemoglobin 12.9 on 05/10/2023. Nausea (~05/30/22) Obesity (BMI 30.0-34.9) Overweight (BMI 25.0-29.9) Plantar fasciitis, bilateral Polyp of colon (03/19/20) Colon polyps on colonoscopy 03/19/2020 with recheck in 5 years, Dr. Cowart. Preoperative evaluation to rule out surgical contraindication Protein in urine (02/02/22) 2+ protein on urinalysis 02/02/2022. Urinalysis normal on 05/10/2023. Seasonal allergic rhinitis Sigmoiditis Thrush Tobacco use disorder, continuous 1 cigarette daily, vaping to quit Surgical History Surgical History Hx of cholecystectomy Family History Family History Grandparent Diabetes mellitus, Onset Age: 77 Depression, Onset Age: 79 Family history of rheumatoid arthritis Family history of cardiovascular disease Acute myocardial infarction Cerebrovascular accident, Onset Age: 77 Famil
[2023-06-28 07:32] VITALS: BMI 28.8
[2023-06-28 07:36] VITALS: BP 103/88; PULSE 92; RESP 16; TEMP 36.6; O2SAT 98
[2023-06-28] MEDS: LACTATED RINGERS 1,000 ML 150 ML IV CONT (07:53)
--- NOTE | 2023-06-28 08:08 | WPDHPUPDATE1 ---
History and Physical Update Update Date/Time: 06/28/23 08:08 History and Physical has been reviewed, including an updated exam of the patient. There are NO changes in the patient's condition. Risks, benefits, and alternatives have been discussed and questions answered. Patient agrees to proceed with procedure.
[2023-06-28 08:45] VITALS: BP 95/73; PULSE 74; RESP 18; O2SAT 97
[2023-06-28 08:55] VITALS: BP 102/79; PULSE 70; RESP 18; O2SAT 100
[2023-06-28 09:05] VITALS: BP 107/77; PULSE 57; RESP 16; O2SAT 100
--- NOTE | 2023-06-28 11:10 | WPDANESPN ---
Anes - Prog Note Post-Op Date/Time: 06/28/23 11:10 Cardiovascular status: normal Respiratory status: normal Airway patency: baseline Mental status: baseline Post-Op hydration status: normal Vital Signs: Last Vital Signs Temp 36.6 C 06/28/23 07:36 Pulse 57 L 06/28/23 09:05 Resp 16 06/28/23 09:05 BP 107/77 06/28/23 09:05 Pulse Ox 100 06/28/23 09:05 O2 Del Method Room Air 06/28/23 09:05 Pain Score (VAS): 0 I/O: Intake & Output 06/27/23 06/28/23 06/28/23 23:59 07:59 15:59 Intake Total 450 Balance 450 Post-procedural complaints: none Patient Feedback: Patient satisfied with anesthetic care. Other Findings: Patient vital signs back to baseline. Patient denies nausea and vomiting. Patient's pain under control. Patient OK for discharge.
== END 2023-06-28 09:18 | disposition home or self-care (01) ==
PROVIDERS: PCP Family Medicine; Visit Provider Internal Medicine Gastroenterology
PROC: 0DJ08ZZ Inspection of Upper Intestinal Tract, Via Natural or Artificial Opening Endoscopic (ICD-10-PCS; CPT 43235; principal; 2023-06-28 08:30)
PROC: 0DJD8ZZ Inspection of Lower Intestinal Tract, Via Natural or Artificial Opening Endoscopic (ICD-10-PCS; CPT 45330; 2023-06-28 08:30)
DX: K59.1 Functional diarrhea (principal); K92.1 Melena; K64.4 Residual hemorrhoidal skin tags; K64.8 Other hemorrhoids; R10.13 Epigastric pain
CPT/HCPCS: 45331; 43239

== ENCOUNTER 2023-06-28 07:00 | Outpatient (NON) | payer OTHER, SELFPAY | END 2023-06-28 07:01 | disposition home or self-care (01) | LOC: ANHLAB 06-29 10:04 | PROVIDERS: PCP Family Medicine; Visit Provider Internal Medicine Gastroenterology | DX: K29.70 Gastritis, unspecified, without bleeding (principal); A06.0 Acute amebic dysentery | CPT/HCPCS: 88305 ==

== ENCOUNTER 2023-08-15 08:32 | Outpatient (CLI) | payer OTHER, SELFPAY ==
[2023-08-28 16:40] VITALS: BMI 27.4
--- NOTE | 2023-08-28 16:40 | WPDSLEEPSTUD ---
Sleep Study Date of Study: 08/15/23 Ordering Provider: Ed Mauro APRN Interpreting Physician: Carmelita Leyva DO Sleep Study Type: Polysomnogram Height: 1.63 m Weight: 72.575 kg Body Mass Index: 27.4 Neck Circumference (inches): 16 [place]: 15 Reason for Sleep Study Daytime hypersomnia The patient had a WatchPAT on 02/20/2023 that showed an overall AHI of 1.4 with desaturation down to 85%. Sleep History The patient is a 47-year-old female with prediabetes, GERD, seasonal allergies, depression, anxiety, hypothyroidism, chronic neck pain, irritable bowel syndrome and tobacco use disorder that had a sleep study ordered by her primary care physician for evaluation of sleep apnea. 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 The patient denies awakening from sleep short of breath. She frequently awakens at night with heartburn, belching or cough. She frequently snores and is frequently loud enough that others complain. She occasionally has trouble sleeping when she has a cold. She rarely wakes up gasping for air throughout the night. She rarely has breathing problems at night observed by herself or others. She frequently sweats excessively at night. She rarely has heart palpitations or irregular heartbeats during the night. She constantly falls asleep during the day but never while driving. She rarely experiences loss of muscle tone when extremely emotional. She constantly has trouble at school or work due to sleepiness. She denies sleep paralysis and hypnagogic/ hypnopompic hallucinations. She denies feeling afraid of going to sleep. She denies having nightmares. She frequently remembers her dreams. She constantly has thoughts racing through her mind. She frequently feels sad, depressed and anxious. She frequently has muscular tension. She occasionally notices parts of her body jerk. She rarely kicks during the night. She rarely has crawling and aching feelings in her legs rarely has leg pain during night. She occasionally grinds her teeth during sleep and frequently awakens with morning jaw pain. She is frequently bothered by pain during the day but rarely awakened by pain during the night. She occasionally wakes up feeling stiff in the morning. She rarely wakes up with sore or achy muscles. She rarely wakes up with pain in the neck, spine or other joints. She goes to bed at 10:00 p.m. on weekdays and at 11:00 p.m. on the weekends. It takes her 30-45 minutes to fall asleep. She wakes up 1-2 times throughout the night for unknown reasons and they can take 60-90 minutes for her to fall back asleep. She wakes up at 5:00 a.m. on weekdays and at 7:00 a.m. on the weekends. She typically gets 8 hours of sleep per night. He will stay in bed less than 5 minutes after waking up in the morning on weekdays. She currently lives with her and 2 children. She will consume caffeinated beverages within 2 hours of bedtime. She denies engaging in physical exercise before bedtime. She will read watch television before falling asleep. She will take naps in the afternoon or the evening but they are not refreshing. She consumes 4 caffeinated beverages per day. She currently vapes. She denies alcohol and recreational drug use. [facility] Past Medical History Medical History Abdominal distension Acute non-recurrent maxillary sinusitis BMI 24.0-24.9, adult BMI 25.0-25.9,adult BMI 27.0-27.9,adult BMI 28.0-28.9,adult BMI 29.0-29.9,adult Bright red blood per rectum Chronic constipation Chronic cough Chest x-ray 02/10/2021 with mild patchy infiltrates right middle lobe and right lower lobe Chronic neck pain Chronic nonallergic rhinitis Colitis C difficile toxin 06/07/22. KUB negative 06/07/2022. Community acquired pneumonia (~02/10/21) chest x-ray 02/10/2021 with right middle lobe and right lower lobe patchy infiltrate Decreased appetite Diarrhea Elevated fasting g
== END 2023-08-16 06:56 | disposition home or self-care (01) ==
LOC: ANHCSM 08:32
PROVIDERS: PCP Family Medicine; Visit Provider Nurse Practitioner Family
DX: G47.19 Other hypersomnia (principal); G47.61 Periodic limb movement disorder; F39 Unspecified mood [affective] disorder
CPT/HCPCS: 95810

== ENCOUNTER 2023-09-28 13:41 | Outpatient (CLI) | payer OTHER, SELFPAY ==
--- NOTE | ~2023-09-28 | MMUS_ITS ---
EXAMINATION: MM diagnostic romina BI w raina, US breast BI limited HISTORY: Follow-up bilateral breast asymmetries TECHNIQUE: Additional 3-D tomosynthesis images of the breasts were performed and synthetic 2-D images were generated. CAD analysis was submitted and interpreted. High resolution bilateral limited breast ultrasound was performed. COMPARISON: Comparison to multiple prior studies sequentially, with oldest reviewed study dated 10/24. BREAST PARENCHYMAL COMPOSITION: Not dense: There are scattered areas of fibroglandular density. FINDINGS: MAMMOGRAPHIC FINDINGS: There are no suspicious masses, calcifications or architectural distortion in either breast to sugges t malignancy. ULTRASOUND: Limited right breast ultrasound: At 6:00, 6 cm from the nipple, there is a small septated cyst. At 9: 00, 8 cm from the nipple there is a 6 mm cyst. At 12:00, 5 cm from the nipple there is a 5 mm cyst. Limited left breast ultrasound: At 6:00, 2 cm from the nipple, there is a cluster of small cysts. The re are no suspicious masses to suggest malignancy. IMPRESSION: 1. No evidence for malignancy in either breast. Benign findings. 2. Routine yearly screening mammogram and regular clinical breast examination are recommended. BI-RADS Category 2: Benign finding(s). Reviewed, dictated and finalized at location B. IMPRESSION: 1. No evidence for malignancy in either breast. Benign findings. 2. Routine yearly screening mammogram and regular clinical breast examination a re recommended. BI-RADS Category 2: Benign finding(s).
== END 2023-09-28 13:42 | disposition home or self-care (01) ==
PROVIDERS: PCP Family Medicine; Visit Provider Obstetrics & Gynecology
DX: R92.8 Other abnormal and inconclusive findings on diagnostic imaging of breast (principal)
CPT/HCPCS: 76642; 77062; 77066; G0279

== ENCOUNTER 2024-05-20 15:41 | Outpatient (CLI) | payer OTHER, SELFPAY ==
--- OUTSIDE RECORDS SUMMARY | 2024-05-20 16:15 | XMS_ITS | Referral Summary ---
Author Organization [facility] [employer] Address [address] [place] [address] Care Team Providers Care Urban Anthropologist Name Role Phone Claudio Valle MD Primary Care Provider [phone] Source Comments [facility] [employer],non-owned Affiliates and Associated Physician Practices is amultiple site organization consisting of ambulatory clinics and hospital sitesin [place], [place], [place] and [place]. This disclosure is being madepursuant to the Care Everywhere program and may not contain all information available regarding this patient. Last updated 17.[employer] Allergies No known active allergies Medications * Be aware that medications may not be up to date on this document. Alwaysverify current medications with the patient. Medication Sig Dispensed Refills Start Date End Date Status omeprazole (PRILOSEC) 40 MG capsule Take 1 (one) capsule by mouth 2 times daily, before breakfast and supper 9 06/25/2018 Active ALPRAZolam (XANAX) 0.5 MG tablet Take 1 (one) tablet by mouth 2 times daily as needed 0 06/19/2018 Active escitalopram (LEXAPRO) 20 MG tablet once daily 07/22/2020 Active ARIPiprazole (ABILIFY) 2 MG tablet Take 1 (one) tablet by mouth once daily 07/19/2020 Active amphetamine-dextroamp hetamine XR 24hr (Adderall XR) 20 MG capsule Take 1 (one) capsule by mouth every morning Active clotrimazole-betameth asone (Lotrisone) 1-0.05 % cream 01/23/2023 Active levothyroxine (Synthroid) 50 MCG tablet Take 1 (one) tablet by mouth once daily 02/06/2023 Active Trintellix 20 MG tablet 05/16/2023 Active valACYclovir (Valtrex) 500 MG tablet TAKE 1 TABLET BY MOUTH TWICE DAILY FOR 10 DAYS THEN 1 ONCE DAILY 01/25/2024 Active eszopiclone (Lunesta) 1 MG tablet TAKE 1 TABLET BY MOUTH ONCE DAILY AT BEDTIME NEEDED FOR INSOMNIA 01/09/2024 Active estradiol (Estrace) 0.1 MG/GM vaginal cream 02/06/2024 Active tretinoin (Retin-A) 0.025 % creamIndications:Acne vulgaris Pea sized amount to entire face at night. 30 days supply. 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 Lopez as scheduled; RTC with me PRN; okay to follow with ECP at [facility] for contacts/glasses Anxiety with depression 05/29/2019 Attention deficit hyperactiv ity disorder, predominantly inattentive type 05/29/2019 Calculus of gallbladder with out cholecystitis without obstruction 05/29/2019 Cholecystitis with perforation of gallbladder Gastroesophageal reflux disease with stricture 0 05/29/2019 Irritable bowel syndrome with constipation and d iarrhea 05/29/2019 Facial nerve spasm 11/21/2018 Acne vulgaris 07/08/2018 Melanocytic nevi of trunk 07/08/2018 Synkinesis 01/03/2018 Arthralgia 07/25/2017 Positive LOUISE (antinuclear antibody) 07/25/2017 Spine pain 07/25/2017 Dysphagia 06/26/2017 Dysphonia 06/26/2017 Sensorineural hearing loss (SNHL) 06/26/2017 Stomatitis 06/26/2017 Hearing loss 06/18/2017 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 (F LUZONE; FLULAVAL; FLUARIX; AFLURIA QUADRIVALENT; 6MO+), 0.5 ML (IIV4) 02/04/2020 Social History Tobacco Use Types Packs/Day Years Used Date Smoking Tobacco: Every Day Cigarettes 0.5 20 Smokeless Tobacco: Never Tobacco Cessation:Ready to Q uit: No; Counseling Given: Yes Alcohol Use Standard Drinks/Week Comments Yes 0 (1 standard drink = 0.6 oz pur e alcohol) Sex and Gender Information Value Date Recorded Sex Assigned at Not on file Gender Identity Not on file Sexual Orientation Not on file Plan of Treatment Upcoming Encounters Date Type Department Care Team (Late st Contact Info) Description 02/09/2025 9:10 AM ELECTRON MICROPROBE OPERATOR Office Visit [facility] - Dermatology [address] [place] [address], [facility] [place] [id number] Wilmar Herbert MD [address] [place] [address] [place] [address] Insurance Payer Benefit Plan / Group Subscriber ID Effective Dates Phone Address Type [facility] MEDICARE SUPP GENERIC [id number] Effective for all dates Commercial SELF PAY NO INSURANCE SELF PAY NO INSURANCE Effective for all dates [place] Self Pay [facility] MEDICARE SUPP GENERIC [id number] Effective for all dates Commercial SELF PAY NO INSURANCE SELF PAY NO INSURANCE Effective for all dates [place] Self Pay [facility] MEDICARE SUPP GENERIC [id number] Effective for all dates Commercial SELF PAY NO INSURANCE SELF PAY NO INSURANCE Effective for all dates [place], [place] Self Pay [facility] CHOICE/SELECT /CHOICE PLUS/ALL PAYORS [id number] 04/12/2022-Pres ent [address] [address] [place] [address] [facility] CHOICE/SELECT /CHOICE PLUS/ALL PAYORS [id number] 04/12/2022-Pres ent [phone] [address] [address] [place] [address] HMO MEDICAID - OUT OF STATE MEDICAID - [facility] [id number] Effective for all dates [address] [address] [place] [address] [facility] CHOICE/SELECT /CHOICE PLUS/ALL PAYORS [id number] 04/12/2022-Pres ent [address] [address] [place] [address] O [facility] MEDICAID [id number] Effective for all dates ATTN CLAIMS DEPARTMENT [address] [place] [address] Medicaid Managed Care [facility] MEDICAID [id number] Effective for all dates ATTN CLAIMS DEPARTMENT [address] [place] [address] Medicaid Managed Care [facility] MEDICAID [id number] Effective for all dates ATTN CLAIMS DEPARTMENT [address] [place] [address] Medicaid Managed Care [facility] MEDICAID [id number] Effective for all dates ATTN CLAIMS DEPARTMENT [address] [place] [address] Medicaid Managed Care [facility] MEDICAID [id number] Effective for all dates ATTN CLAIMS DEPARTMENT [address] [place] [address] Medicaid Managed Care [facility] MEDICAID [id number] Effective for all dates ATTN CLAIMS DEPARTMENT [address] [place] [address] Medicaid Managed Care [facility] MEDICAID [id number] Effective for all dates ATTN CLAIMS DEPARTMENT [address] [place] [address] Medicaid Managed Care [facility] MEDICAID [id number] Effective for all dates ATTN CLAIMS DEPARTMENT [address] [place] [address] Medicaid Managed Care [facility] MEDICAID [id number] Effective for all dates ATTN CLAIMS DEPARTMENT [address] [place] [address] Medicaid Managed Care [facility] MEDICAID [id number] Effective for all dates ATTN CLAIMS DEPARTMENT [address] [place] [address] Medicaid Managed Care [facility] MEDICAID [id number] Effective for all dates ATTN CLAIMS DEPARTMENT [address] [place] [address] Medicaid Managed Care [facility] MEDICAID [id number] Effective for all dates ATTN CLAIMS DEPARTMENT [address] [place] [address] Medicaid Managed Care [facility] MEDICAID [id number] Effective for all dates ATTN CLAIMS DEPARTMENT [address] [place] [address] Medicaid Managed Care [facility] MEDICAID [id number] Effective for all dates ATTN CLAIMS DEPARTMENT [address] [place] [address] Medicaid Managed Care Care Teams Urban Anthropologist Relationship Specialty Start Date End Date Claudio Valle MD PCP - General 02/07/18
--- OUTSIDE RECORDS SUMMARY | 2024-05-20 16:15 | XMS_ITS | Referral Summary ---
Author Organization [facility] Address [address] [place] [address] Care Team Providers Care Tar Heater Operator Name Role Phone Claudio Valle MD Primary Care Provider [phone] Encounters Date Type Department Care Team Description 04/10/2024 9:15 AM SUPERVISOR AGENCY APPOINTMENTS Procedure visit [facility] Ophthalmology [address] [facility] [address]th [place] [address] Neri Lopez MD Facial nerve spasm (Primary Dx) from Last 3 Months Allergies Active Allergy Reactions Criticality Noted Date Comments Adhesive Tape-Silicones Rash Medium 09/11/2014 Medications pseudoephedrine -ibuprofen (ADVIL COLD AND SINUS) 30-200 mg capsule Active aluminum & magnesium hydroxide-simet hicone-diphenhy dramine 1-1 (MAGIC MOUTHWASH) 100mg DOXYCYCLINE 120ML BENADRYL 12.5MG/5ML 60ML DECADRON 0.5MG/5ML 2 TSP SWISH AND SPIT TWICE A DAY X14 DAYS 8 Active montelukast (SINGULAIR) 10 mg tablet daily. 8 Active multivitamin tabletIndicatio ns:Vitamin Deficiency Prevention Active omeprazole (PriLOSEC) 40 mg capsule daily. Active methylphenidate HCl (RITALIN) 20 mg tablet Active ALPRAZolam (XANAX) 0.25 mg tablet as needed Active tretinoin (RETIN-A) 0.025 % cream 11 9 Active ondansetron (ZOFRAN) 4 mg tablet Take 4 mg by mouth every 6 (six) hours as needed 0 9 Active PROAIR HFA 90 mcg/actuation inhaler INHALE 2 PUFFS BY MOUTH 4 TIMES DAILY NEEDED FOR SHORTNESS OF BREATH FOR WHEEZING 0 9 Active fluticasone propionate (FLONASE) 50 mcg/actuation nasal spray 1 Active escitalopram (LEXAPRO) 20 mg tablet 1 Active cyclobenzaprine (FLEXERIL) 10 mg tablet 1 1 Active ARIPiprazole (ABILIFY) 2 mg tablet Take 2 mg by mouth daily 1 Active amoxicillin-cla vulanate (AUGMENTIN) 875-125 mg per tablet TAKE 1 TABLET BY MOUTH EVERY 12 HOURS WITH FOOD FOR TOTAL OF 7 DAYS 3 Active cephalexin (KEFLEX) 500 mg capsule TAKE 1 CAPSULE BY MOUTH TWICE DAILY WITH FOOD FOR 7 DAYS 3 Active ciprofloxacin (CIPRO) 500 mg tablet 3 Active clindamycin-noel zoyl peroxide (BENZACLIN) gel Apply to acne spots as needed. 30 days supplied 2 Active clotrimazole-be tamethasone (LOTRISONE) cream 3 Active dextroamphetami ne-amphetamine XR (ADDERALL XR) 20 mg 24 hr capsule Take 1 capsule (20 mg total) by mouth every morning Active dextroamphetami ne-amphetamine (ADDERALL) 10 mg tablet 0 3 Active fluconazole (DIFLUCAN) 150 mg tablet 3 Active fluocinolone-hy droq.-tretinoin 0.01-4-0.05 % cream Apply to affected area nightly, for eight weeks, then take 4 weeks off 1 Active levothyroxine (SYNTHROID) 50 mcg tablet Take 1 tablet (50 mcg total) by mouth daily 3 Active nitrofurantoin monohydrate (MACROBID) 100 mg capsule TAKE 1 CAPSULE BY MOUTH BY MOUTH ONCE DAILY IN THE MORNING AND IN THE EVENING 3 Active amoxicillin 500 mg capsule TAKE 1 CAPSULE BY MOUTH THREE TIMES DAILY FOR 10 DAYS 3 Active cefdinir (OMNICEF) 300 mg capsule Take 1 capsule (300 mg total) by mouth every 12 (twelve) hours 3 Active ibuprofen (ADVIL,MOTRIN) 600 mg tablet TAKE 1 TABLET BY MOUTH EVERY 6 HOURS NEEDED FOR PAIN AND FEVER 3 Active nystatin 100,000 unit/mL suspension SWISH & SWALLOW 5 ML BY MOUTH 4 TIMES DAILY [address] (ACIPHEX) 20 mg EC tablet 3 Active Trintellix 10 mg tablet 3 Active azelastine (ASTELIN) 137 mcg (0.1 %) nasal spray USE 1 SPRAY(S) IN EACH NOSTRIL TWICE DAILY NEEDED FOR 5 DAYS 4 Active benzonatate (TESSALON) 100 mg capsule TAKE 1 CAPSULE BY MOUTH EVERY 8 HOURS NEEDED FOR COUGH 4 Active eszopiclone (LUNESTA) 3 mg tablet TAKE 1 TABLET BY MOUTH ONCE DAILY AT BEDTIME, TAKE TABLET WITH YOU TO SLEEP CENTER FOR SLEEP STUDY 4 Active Anucort-HC 25 mg suppository INSERT 1 SUPPOSITORY RECTALLY TWICE DAILY 4 Active ipratropium (ATROVENT) 42 mcg (0.06 %) nasal spray USE 1 SPRAY(S) IN EACH NOSTRIL TWICE DAILY FOR 5 DAYS 4 Active meloxicam (MOBIC) 15 mg tablet 4 Active metroNIDAZOLE (FLAGYL) 500 mg tablet TAKE 1 TABLET BY MOUTH EVERY 8 HOURS FOR 10 DAYS 4 Active sodium, potassium & mag sulfates (SUPREP BOWEL KIT) 17.5-3.13-1.6 gram recon soln TAKE DIRECTED PER DR. 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 for contacts/glasses Anxiety with depression 05/29/2019 Attention deficit hyperactiv ity disorder, predominantly inattentive type 05/29/2019 Calculus of gallbladder with out cholecystitis without obstruction 05/29/2019 Chest pain with high risk for cardiac etiology 0 05/29/2019 Cholecystitis with perforation of gallbladder Irritable bowel syndrome with constipation and d iarrhea 05/29/2019 Gastroesophageal reflux disease with stricture 0 05/29/2019 Facial nerve spasm 11/21/2018 Acne vulgaris 07/08/2018 Melanocytic nevi of trunk 07/08/2018 Synkinesis 01/03/2018 Encounter for consultation 07/26/2017 Adult BMI 27.0-27.9 kg/sq m 07/25/2017 Arthralgia 07/25/2017 Positive LOUISE (antinuclear antibody) 07/25/2017 Spine pain 07/25/2017 Dysphagia 06/26/2017 Dysphonia 06/26/2017 Sensorineural hearing loss (SNHL) 06/26/2017 Stomatitis 06/26/2017 Hearing loss 06/18/2017 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 12/08/2015 Seborrheic keratoses 12/08/2015 Immunizations Name Administration Dates Next Due Influenza, Quadrivalent, Spl it, Preservative Free, Intramuscular 02/04/2020 Social History Tobacco Use Types Packs/Day Years Used Date Smoking Tobacco: Every Day Cigarettes Smokeless Tobacco: Never Alcohol Use Standard Drinks/Week Comments Yes 0 (1 standard drink = 0.6 oz pur e alcohol) AUDIT-C Answer Date Recorded Frequency of Alcohol Consumption Monthly or less 08/07/2018 Average Number of Drinks Not on file 019 Frequency of Binge Drinking Not on file 04/2018 Comments Unknown Sex and Gender Information Value Date Recorded Sex Assigned at Not on file Legal Sex Female 4:26 PM SUPERVISOR AGENCY APPOINTMENTS Gender Identity Female 10/09/2019 10:03 AM CDT Sexual Orientation Not on file Last Filed Vital Signs Vital Sign Reading Time Taken Comments Blood Pressure 108/64 03/02/2019 5:29 PM SUPERVISOR AGENCY APPOINTMENTS Pulse 68 03/02/2019 5:29 PM SUPERVISOR AGENCY APPOINTMENTS Temperature 36.7 C (98 F) 03/02/2019 5:29 PM SUPERVISOR AGENCY APPOINTMENTS Respiratory Rate - - Oxygen Saturation 99% 03/02/2019 5:29 PM SUPERVISOR AGENCY APPOINTMENTS Inhaled Oxygen Concentration - - Weight 66.2 kg (146 lb) 02/03/2021 10:08 AM CDT Height 160.7 cm (5' 3.25 ) 02/03/2021 10:08 AM C DT Body Mass Index 25.66 02/03/2021 10:08 AM CDT Plan of Treatment Not on file Procedures Procedure Name Priority Date/Time Associated Diagnosis Comments FUNCTIONAL INJECTION, BOTULINUMTOXIN - FACIAL NERVE - OS - LEFT EYE Routine 04/10/2024 12:42 PM SUPERVISOR AGENCY APPOINTMENTS Facial nerve spasm HEPATITIS C ANTIBODY Routine Gen Lab 07/25/2017 12:22 PM CDT from Last 3 Months or Most Recently Relevant to Health Maintenance Results * Functional Injection, Botulinumtoxin - Facial Nerve - OS - Left Eye (04/10/2024 12:42 PM SUPERVISOR AGENCY APPOINTMENTS) Anatomical Region Laterality Modality Head Other Narrative 04/10/2024 12:42 PM SUPERVISOR AGENCY APPOINTMENTS Time Out Informed consent was obtained after all risks, benefits and alternatives were explained to the patient. The patient understood, agreed and wished to proceed. Timeout was completed verifying the patient, procedure, laterality and allergies. Injection, Botulinumtoxin The injection site was prepped with a alcohol prep pad. Injection: 34 Units onabotulinumtoxin A 100 unit Route: intramuscular, Site: Left Lid(s) [facility]: 1815-1036-88, Lot: [id number], Expiration date: 07/06/2026, Waste: 66 Units Bacteriostatic saline at 5 units per 0.1ml. The medication administered today was not supplied by the patient or insurance. Post-op the patient tolerated the procedure. there were no complications during today's treatment. The patient received verbal post procedure care education. Neri Lopez MD [facility] PROCEDURES Final Result * Hepatitis C antibody (07/25/2017 12:22 PM CDT) Hep C Ab Nonreactive Nonreactive [facility] Comment: Interpretive Data Positive and greyzone results should be confirmed by a molecular method. If positive or greyzone, a second separately collected sample should be submitted for Hepatitis C Virus RNA. Detection and Quantitation by Real-Time Reverse Reed Or Wind Instrument Repairer-PCR.Current Interpretive data was last revised on 2016. Blood specimen (specimen) 07/25/2017 12:22 PM CDT 07/25/2017 2:06 PM CDT Narrative [facility] - 07/26/2017 9:17 AM CDT Sofya Valentin NP LAB MICROBIOLOGY - GENERAL ORDERABLES Edited Result - Final [facility] Department [place] [address] from Last 3 Months or Most Recently Relevant to Health Maintenance [place] [address] [place] [address] [facility] [place] [address] Care Teams Tar Heater Operator Relationship Specialty Start Date End Date Claudio Valle MD [address] [address] PCP - General Family Medicine 07/18/18
--- OUTSIDE RECORDS SUMMARY | 2024-05-20 16:15 | XMS_ITS | Clinical Summary ---
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 Seborrheic keratoses 12/08/2015 Encounters Date Type Department Care Team Description 04/10/2024 9:15 AM PV DESIGN ENGINEER Procedure visit [facility] Ophthalmology [address] [place] [address] Neri Lopez MD Facial nerve spasm (Primary Dx) from Last 3 Months Immunizations Name Administration Dates Next Due Influenza, Quadrivalent, Spl it, Preservative Free, Intramuscular 02/04/2020 Surgical History Surgery Date Site/Laterality Comments [place] DELIVERY ONLY Section - (Added by TW Conv) SECTION 04/09/2007 - 04/08/2008 SECTION 04/09/2011 - 04/08/2012 FOOT SURGERY 04/09/2014 - 04/08/2015 bone spur removal Medical History Medical History Date Comments Anxiety disorder Anxiety - (Adde d by TW Conv) Personal history of other di seases of the digestive system History of gastroesophageal reflux (GERD) - (Added by TW Conv) Chronic sinusitis Recurrent sinu s infections - (Added by TW Conv) 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 Synkinesis 01/03/2018 Sensorineural hearing loss (SNHL) 06/26/2017 Dysphonia 06/26/2017 Encounter for consultation 07/26/2017 Arthritis Depression Gastric reflux Pneumonia Peptic ulceration Family History Medical History Relation Name Comments Heart disease Brother 1 Family history of cardiac disorder - (Added by TW Conv) Heart disease Brother 2 Family history of cardiac disorder - (Added by TW Conv) Diabetes Father Family history of diabetes mellitus - (Added by TW Conv)/Family history of diabetes mellitus - (Added by TW Conv) Arthritis Maternal Grandfather Family history of arthritis - Relation: Grandfather (Added by TW Conv) Gout Maternal Grandfather Family history of gout - Relation: Grandfather (Added by TW Conv) Rheum arthritis Other 1 Family histo ry of rheumatoid arthritis - Relation: Grandmother (Added by TW Conv) Osteoarthritis Other 2 Family histor y of osteoarthritis - Relation: Grandmother (Added by TW Conv) Relation Name Status Comments Brother 1 Brother 2 Father Maternal Grandfather Other 1 Other 2 Social History Tobacco Use Types Packs/Day Years [...] on file Legal Sex Female 4:26 PM PV DESIGN ENGINEER Gender Identity Female 10/09/2019 10:03 AM CDT Sexual Orientation Not on file Obstetrics History Last Filed Vital Signs Vital Sign Reading Time Taken Comments Blood Pressure 108/64 03/02/2019 5:29 PM PV DESIGN ENGINEER Pulse 68 03/02/2019 5:29 PM PV DESIGN ENGINEER Temperature 36.7 C (98 F) 03/02/2019 5:29 PM PV DESIGN ENGINEER Respiratory Rate - - Oxygen Saturation 99% 03/02/2019 5:29 PM PV DESIGN ENGINEER Inhaled Oxygen Concentration - - Weight 66.2 kg (146 lb) 02/03/2021 10:08 AM CDT Height 160.7 cm (5' 3.25 ) 02/03/2021 10:08 AM C DT Body Mass Index 25.66 02/03/2021 10:08 AM CDT Plan of Treatment Health Maintenance Due Date Last Done Comments Breast Cancer Screening-Mammogram 1973 Cervical Cancer Screening 1973 Colon Cancer Screening-Colonoscopy 1973 Depression Screening 1973 Pneumococcal vaccine <65 (1 of 2 - PCV) 12/14/1979 DTaP/Tdap/Td Vaccine (1 - Tdap) 1984 Hepatitis B Screening 12/14/1991 Regular Well Visit/Exam 18-64 12/14/1991 Influenza Vaccine (#1) 2023 02/04/2020 Zoster Vaccine (1 of 2) 12/14/2023 Hepatitis C Screening Completed 07/25/2017 Procedures Procedure Name Priority Date/Time Associated Diagnosis Comments FUNCTIONAL INJECTION, BOTULINUMTOXIN - FACIAL NERVE - OS - LEFT EYE Routine 04/10/2024 12:42 PM PV DESIGN ENGINEER Facial nerve spasm HEPATITIS C ANTIBODY Routine Gen Lab 07/25/2017 12:22 PM CDT from Last 3 Months or Most Recently Relevant to Health Maintenance Results * Functional Injection, Botulinumtoxin - Facial Nerve - OS - Left Eye (04/10/2024 12:42 PM PV DESIGN ENGINEER) Anatomical Region Laterality Modality Head Other Narrative 04/10/2024 12:42 PM PV DESIGN ENGINEER Time Out Informed consent was obtained after all risks, benefits and alternatives were explained to the patient. The patient understood, agreed and wished to proceed. Timeout was completed verifying the patient, procedure, laterality and allergies. Injection, Botulinumtoxin The injection site was prepped with a alcohol prep pad. Injection: 34 Units onabotulinumtoxin A 100 unit Route: intramuscular, Site: Left Lid(s) [facility]: 4695-9053-36, Lot: [id number], Expiration date: 07/06/2026, Waste: 66 Units Bacteriostatic saline at 5 units per 0.1ml. The medication administered today was not supplied by the patient or insurance. Post-op the patient tolerated the procedure. there were no complications during today's treatment. The patient received verbal post procedure care education. Neri Lopez MD [facility] PROCEDURES Final Result * Hepatitis C antibody (07/25/2017 12:22 PM CDT) Hep C Ab Nonreactive Nonreactive [facility] Comment: Interpretive Data Positive and greyzone results should be confirmed by a molecular method. If positive or greyzone, a second separately collected sample should be submitted for Hepatitis C Virus RNA. Detection and Quantitation by Real-Time Reverse Track Layer-PCR.Current Interpretive data was last revised on 2016. Blood specimen (specimen) 07/25/2017 12:22 PM CDT 07/25/2017 2:06 PM CDT Narrative [facility] - 07/26/2017 9:17 AM CDT Sofya Valentin NP LAB MICROBIOLOGY - GENERAL ORDERABLES Edited Result - Final [facility] Department [place] [address] from Last 3 Months or Most Recently Relevant to Health Maintenance [place] [address] [place] [address] [facility] [employer] [place] [id number] [place] [address] Care Teams Oven Tender Bagels Relationship Specialty Start Date End Date Claudio Valle MD [address] [address] PCP - General Family Medicine 07/18/18
--- OUTSIDE RECORDS SUMMARY | 2024-05-20 16:15 | XMS_ITS | Patient Health Summary ---
Author Organization [facility] [employer] Address [address] [place] [address] Care Team Providers Care Line Painting Machine Operator Name Role Phone Claudio Valle MD Primary Care Provider [phone] Note from [facility],non-owned Affiliates and Associated Physician Practices is amultiple site organization consisting of ambulatory clinics and hospital sitesin [place], [place], [place] and [place]. This disclosure is being madepursuant to the Care Everywhere program and may not contain all information available regarding this patient. Last updated 17.[facility] [employer] Allergies No known active allergies Medications * Be aware that medications may not be up to date on this document. Alwaysverify current medications with the patient. * omeprazole (PRILOSEC) 40 MG capsule(Started 06/25/2018) Take 1 (one) capsule by mouth 2 times daily, before breakfast and supper 9 refills left * ALPRAZolam (XANAX) 0.5 MG tablet(Started 06/19/2018) Take 1 (one) tablet by mouth 2 times daily as needed * escitalopram (LEXAPRO) 20 MG tablet(Started 07/22/2020) once daily * ARIPiprazole (ABILIFY) 2 MG tablet(Started 07/19/2020) Take 1 (one) tablet by mouth once daily * amphetamine-dextroamphetamine XR 24hr (Adderall XR) 20 MG capsule Take 1 (one) capsule by mouth every morning * clotrimazole-betamethasone (Lotrisone) 1-0.05 % cream(Started 01/23/2023) * levothyroxine (Synthroid) 50 MCG tablet(Started 02/06/2023) Take 1 (one) tablet by mouth once daily * Trintellix 20 MG tablet(Started 05/16/2023) * valACYclovir (Valtrex) 500 MG tablet(Started 01/25/2024) TAKE 1 TABLET BY MOUTH TWICE DAILY FOR 10 DAYS THEN 1 ONCE DAILY * eszopiclone (Lunesta) 1 MG tablet(Started 01/09/2024) TAKE 1 TABLET BY MOUTH ONCE DAILY AT BEDTIME NEEDED FOR INSOMNIA * estradiol (Estrace) 0.1 MG/GM vaginal cream(Started 02/06/2024) * tretinoin (Retin-A) 0.025 % cream(Started 02/11/2024) Pea sized amount to entire face at night. 30 days supply. 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 (FLUZONE; FLULAVAL; FLUARIX; AFLURIA QUADRIVALENT; 6MO+), 0.5 ML (IIV4)(Given 02/04/2020) Social History Tobacco Use Types Packs/Day Years [...] on file Sexual Orientation Not on file Procedures * OH DESTRUCT BENIGN LESION, 1-14(Performed 02/11/2024) Performed for Seborrheic keratosis, inflamed * OH TANGNTL BX SKIN SINGLE LES(Performed 01/08/2024) Performed for Neoplasm of uncertain behavior of skin * DERMATOPATHOLOGY(Performed 01/08/2024) Performed for Neoplasm of uncertain behavior of skin * OH DESTRUCT BENIGN LESION, 1-14(Performed 02/14/2023) Performed for Seborrheic keratosis, inflamed * OH DESTRUCT BENIGN LESION, 1-14(Performed 01/10/2023) Performed for Seborrheic keratosis, inflamed * OH TANGNTL BX SKIN SINGLE LES(Performed 02/13/2022) Performed for Neoplasm of uncertain behavior * DERMATOPATHOLOGY(Performed 02/13/2022) Performed for Neoplasm of uncertain behavior * OH DESTRUCT BENIGN LESION, 1-14(Performed 01/31/2021) Performed for Keratosis, inflamed seborrheic * OH DESTRUCT BENIGN LESION, 1-14(Performed 02/02/2020) Performed for Seborrheic keratosis * OH PUNCH BX SKIN SINGLE LESION(Performed 02/02/2020) Performed for Neoplasm of uncertain behavior of skin * DERMATOPATHOLOGY(Performed 02/02/2020) Performed for Neoplasm of uncertain behavior of skin * DERMATOPATHOLOGY(Performed 02/14/2017) * DERMATOPATHOLOGY(Performed 12/08/2015) * DERMATOPATHOLOGY(Performed 12/28/2010) * PATHOLOGY/GENETICS HISTORICAL-ONBASE(Performed 12/01/2010) * PATHOLOGY/GENETICS HISTORICAL-ONBASE(Performed 12/01/2010) * PATHOLOGY/GENETICS HISTORICAL-ONBASE(Performed 12/01/2010) Results * OH DESTRUCT BENIGN LESION, 1-14 (02/11/2024 9:23 AM FIBER MACHINE TENDER) Narrative Wilmar Herbert MD - 02/11/2024 9:23 AM FIBER MACHINE TENDER Wanda Esteban MD 02/11/2024 9:23 AM Diagnosis and treatment options discussed, addressing the benefit and risks of each. Pt wish to proceed with cryotherapy. Liquid Nitrogen was applied to lesion(s) for 7-10s each. Number of cycles: 1. Wound care reviewed. Wanda Esteban MD [facility] Dermatology Resident Wilmar Herbert MD PROCEDURE/MINOR SURG ICAL ORDERABLES * OH TANGNTL BX SKIN SINGLE LES (01/08/2024 3:26 PM CDT) Narrative Em Arellano PA - 01/08/2024 3:26 PM CDT Em Arellano PA 01/08/2024 3:34 PM Derm - Shave Biopsy Date/Time: 01/08/2024 3:26 PM Performed by: Em Arellano PA Authorized by: Em Arellano PA Consent given by: patient Consent type: verbal Risks discussed with patient: bleeding, need for further testing/treatment, infection, scar formation, skin color change and non-diagnostic biopsy. Procedure details: Skin prep: isopropyl alcohol Anesthesia: lidocaine 2% with epi Location information Left shoulder Number of standard lesions: 1 Total number of lesions: 1 Instrument(s) used: flexible razor blade Hemostasis achieved with aluminum chloride Wound dressing: bandage and petrolatum EBL: less than 5 mL Complications: none Wound care discussed with patient? yes Specimen(s) sent to pathology Patient preferred contact method(s): phone and MyChart [facility] PROCEDURE/MINOR SURG ICAL ORDERABLES * DERMATOPATHOLOGY (Specimen Count = 1) (01/08/2024 12:00 AM CDT) Only the most recent of6 resultswithin the time period is included. Case Report Dermatopathology Report Case: [id number] Authorizing Provider: Em Arellano PA Collected: 01/08/2024 12:00 AM Ordering Location: [facility] - Received: 01/09/2024 07:06 AM Dermatology Pathologist: Wilmar Herbert MD Specimen: Skin, left shoulder 4 4:24 PM CDT DERMATOPATHOLOGY LABORATORY Final Diagnosis Specimen A. SKIN, left shoulder: SEBORRHEIC KERATOSIS, IRRITATED AND INFLAMED (L82.0) 4 4:24 PM CDT DERMATOPATHOLOGY LABORATORY Clinical History BVK vs ISK 4:24 PM CDT DERMATOPATHOLOGY LABORATORY Gross Description Specimen A: Received is one formalin filled container labeled with the patient's name and designated left shoulder. The specimen consists of a shave biopsy measuring 8x7x1 mm. Jar 0. 4:24 PM CDT DERMATOPATHOLOGY LABORATORY Microscopic Description Specimen A. SKIN, left shoulder: Sections show acanthosis, papillomatosis, hyperkeratosis, and squamous eddies. There is a lymphohistiocytic infiltrate within the papillary dermis. 4:24 PM CDT DERMATOPATHOLOGY LABORATORY Disclaimer An external and internal positive and negative controls are appropriate for the histochemical, immunohistochemical and immunofluorescence stain(s) in this case (if any), except where stated explicitly. The performance characteristics of the stain(s) cited in this report were developed and its performance characteristic determined by the Dermatopathology Laboratory at [facility], directed by Dr. Gonzales Herbert. These tests need not be, and therefore are not, approved by the [place] Food and Drug Administration. The tests are used for clinical purposes. Billing Codes Specimen Charges Stain Charges 83375 1 4:24 PM CDT DERMATOPATHOLOGY LABORATORY Embedded Images 4:24 PM CDT DERMATOPATHOLOGY LABORATORY Pathology/Cytolog y TISSUE SPECIMEN FROM SKIN / Unknown 01/08/2024 01/09/2024 7:06 AM CDT [facility] - PATHOLOGY/CYTO LOGY ORDERABLES DERMATOPATHOLOGY LABORATORY [facility] - Department of Dermatology [address], [address] [phone] * OH DESTRUCT BENIGN LESION, 1-14 (02/14/2023 4:34 PM FIBER MACHINE TENDER) Narrative Wilmar Herbert MD - 02/14/2023 4:34 PM FIBER MACHINE TENDER Shorty Anand MD 02/14/2023 4:34 PM Diagnosis and treatment options discussed. Liquid nitrogen was applied to 2 lesions (back). The expected reaction ranges from minimal changes to scabbing, crust, blistering, or swelling, which can be painful. Color changes different from the surrounding skin are expected and can be either senior user experience architect or darker--this can sometimes take a long time to fully resolve, and in some cases, it may not ever fully look like the surrounding skin--there is a delicate balance between freezing hard enough for efficacy and such side effects that is different for different people. There is a small risk of infection similar to any time there is a break in the skin. Blister/wound care discussed, handout given. Return if lesions fail to fully resolve. Verbal consent obtained prior to any procedures being done. Shorty Anand MD [facility] Dermatology Resident, PGY-4 Wilmar Herbert MD PROCEDURE/MINOR SURG ICAL ORDERABLES * OH DESTRUCT BENIGN LESION, 1-14 (01/10/2023 6:08 PM CDT) Narrative Wilmar Herbert MD - 01/10/2023 6:08 PM CDT Shorty Anand MD 01/10/2023 6:08 PM Diagnosis and treatment options discussed. Liquid nitrogen was applied to 1 lesion (R lower abdomen). The expected reaction ranges from minimal changes to scabbing, crust, blistering, or swelling, which can be painful. Color changes different from the surrounding skin are expected and can be either senior user experience architect or darker--this can sometimes take a long time to fully resolve, and in some cases, it may not ever fully look like the surrounding skin--there is a delicate balance between freezing hard enough for efficacy and such side effects that is different for different people. There is a small risk of infection similar to any time there is a break in the skin. Blister/wound care discussed, handout given. Return if lesions fail to fully resolve. Verbal consent obtained prior to any procedures being done. Shorty Anand MD [facility] Dermatology Resident, PGY-4 Wilmar Herbert MD PROCEDURE/MINOR SURG ICAL ORDERABLES * OH TANGNTL BX SKIN SINGLE LES (02/13/2022 12:41 PM FIBER MACHINE TENDER) Narrative Wilmar Herbert MD - 02/13/2022 12:41 PM FIBER MACHINE TENDER Halina Loera MD 02/13/2022 12:42 PM Risks, benefits and alternatives to shave biopsy were discussed with the patient. Verbal consent was obtained. Encounter Diagnoses Name Primary? Melasma Acne vulgaris Keratosis, inflamed seborrheic Yes Neoplasm of uncertain behavior Location: Right Back Skin prep: Alcohol Anesthesia: 1% lidocaine with epinephrine Hemostasis: Aluminum chloride Dressing and wound care discussed. Specimen(s) placed in a patient labeled container and sent to [facility]. Patient agrees to phone call for results and message if not available. Halina Loera MD Dermatology Research Fellow Wilmar Herbert MD PROCEDURE/MINOR SURG ICAL ORDERABLES * OH DESTRUCT BENIGN LESION, 1-14 (01/31/2021 1:48 PM CDT) Narrative Wilmar Herbert MD - 01/31/2021 1:48 PM CDT Wanda Hurtado MD 01/31/2021 1:50 PM Diagnosis and treatment options discussed. Cryotherapy (Liquid Nitrogen) to 3 lesion(s) for 10 seconds. Number of cycles: 1-2. Wound care reviewed. Locations: right lower abdomen x1, left inguinal femoral crease x2 Wanda Hurtado MD Dermatology Research Fellow Wilmar Herbert MD PROCEDURE/MINOR SURG ICAL ORDERABLES * OH DESTRUCT BENIGN LESION, 1-14 (02/02/2020 5:11 PM CDT) Narrative Wanda Hurtado MD - 02/02/2020 5:11 PM CDT Wanda Hurtado MD 02/02/2020 5:12 PM Diagnosis and treatment options discussed. Cryotherapy (Liquid Nitrogen) to 1 SK x 10 seconds. Located on back. Number of cycles: 2. Wound care reviewed. Wilmar Herbert MD PROCEDURE/MINOR SURG ICAL ORDERABLES * OH PUNCH BX SKIN SINGLE LESION (02/02/2020 5:10 PM CDT) Narrative Wanda Hurtado MD - 02/02/2020 5:10 PM CDT Wanda Hurtado MD 02/02/2020 5:11 PM Risks, benefits and alternatives to punch biopsy were discussed with the patient. Verbal consent was obtained. Location: right forearm Punch biopsy: 4 mm Skin prep: Alcohol Anesthesia: 1% lidocaine with epinephrine Closure: 4-0 nylon suture Dressing and wound care discussed. Patient agrees to phone call for results and message if not available. Wanda Hurtado MD Dermatology Research Fellow Wilmar Herbert MD PROCEDURE/MINOR SURG ICAL ORDERABLES * PATHOLOGY/GENETICS HISTORICAL-ONBASE (12/01/2010) Only the most recent of3 resultswithin the time period is included. 12/01/2010 Historical Provider LAB - CHEMISTRY O RDERABLES [facility] Care Teams Line Painting Machine Operator Relationship Specialty Start Date End Date Claudio Valle MD PCP - General 02/07/18
--- OUTSIDE RECORDS SUMMARY | 2024-05-20 16:15 | XMS_ITS | Clinical Summary ---
Author Organization [email or web address] [facility] [facility] Address [address] [place] [address] Care Team Providers Care Wood Getter Name Role Phone Claudio Valle MD Primary Care Provider [phone] Source Comments [facility] [facility],non-owned Affiliates and Associated Physician Practices is amultiple site organization consisting of ambulatory clinics and hospital sitesin [place], [place], [place] and [place]. This disclosure is being madepursuant to the Care Everywhere program and may not contain all information available regarding this patient. Last updated 17.[employer] Allergies No known active allergies Medications * [...] PRN; okay to follow with ECP at [facility] for contacts/glasses Anxiety with depression 05/29/2019 Attention [...] AFLURIA QUADRIVALENT; 6MO+), 0.5 ML (IIV4) 02/04/2020 Family History Medical History Relation Name Comments None Known Brother Cancer - Skin, Non Melanoma Father None Known Maternal Aunt None Known Maternal Grandfather None Known Maternal Grandmother None Known Maternal Uncle Eczema Mother None Known Other None Known Paternal Aunt None Known Paternal Grandfather None Known Paternal Grandmother None Known Paternal Uncle None Known Sister Asthma Neg Hx CVA Neg Hx Cancer - Breast Neg Hx Cancer - Other Neg Hx Cancer - Skin, Melanoma Neg Hx Hemophilia Neg Hx Psoriasis Neg Hx Relation Name Status Comments Brother Father Maternal Aunt Maternal Grandfather Maternal Grandmother Maternal Uncle Mother Other Paternal Aunt Paternal Grandfather Paternal Grandmother Paternal Uncle Sister Social History Tobacco Use Types Packs/Day Years [...] st Contact Info) Description 02/09/2025 9:[address] INTERPRETER Office Visit [facility] - Dermatology [address] [place] [address], [facility] [place] [phone] Wilmar Herbert MD [address] [place] [address] [address] [place] [id number] Health Maintenance Due Date Last Done Comments COLOGUARD (AGES 45-75) - COL ON CA SCREENING 1973 COLON MONITORING 1973 COLONOSCOPY - COLON CA SCREENING 1973 CT COLONOGRAPHY - COLON CA SCREENING 1973 Colorectal Cancer Screening 1973 FIT - COLON CA SCREENING 1973 FLEX SIG - COLON CA SCREENING 1973 LIPID TESTING 1973 MAMMOGRAM 1973 PAP SMEAR 1973 HIV SCREENING 1988 HEPATITIS C SCREENING 12/09/1991 DTAP/TDAP/TD VACCINES (1 - Tdap) 1992 HEPATITIS B VACCINE (1 of 3 - 19+ 3-dose series) 1992 PNEUMOCOCCAL VACCINE 50+ (1 of 2 - PCV) 1992 PNEUMOCOCCAL VACCINE (1 of 2 - PCV) 1992 COVID-19 VACCINE (1 - 2023-2 5 season) 2023 INFLUENZA VACCINE (#1) 2023 02/04/2020 ZOSTER VACCINE (1 of 2) 12/14/2023 DEPRESSION SCREENING 04/09/2024 HIB VACCINE Aged Out No longer eligi ble based on patient's age to complete this topic HPV VACCINE Aged Out No longer eligi ble based on patient's age to complete this topic MENINGOCOCCAL (Group B) VACCINE Aged Out No longer eligible based on patient's age to complete this topic MENINGOCOCCAL VACCINE Aged Out No lori shirley eligible based on patient's age to complete this topic Insurance Payer Benefit Plan / Group Subscriber ID Effective Dates Phone Address Type [facility] MEDICARE SUPP GENERIC [id number] Effective for all dates Commercial SELF PAY NO INSURANCE SELF PAY NO INSURANCE Effective for all dates [place] Self Pay [facility] MEDICARE SUPP GENERIC [id number] Effective for all dates Commercial SELF PAY NO INSURANCE SELF PAY NO INSURANCE Effective for all dates [place] Self Pay [facility] MEDICARE SUPP GENERIC [id number] Effective for all dates Commercial SELF PAY NO INSURANCE SELF PAY NO INSURANCE Effective for all dates [place] Self Pay [facility] CHOICE/SELECT /CHOICE PLUS/ALL PAYORS [id number] 04/12/2022-Pres ent [address] [address] [place] [address] [facility] CHOICE/SELECT /CHOICE PLUS/ALL PAYORS [id number] 04/12/2022-Pres ent [address] [address] [place] [address] O MEDICAID - OUT OF STATE [place] PUBLIC A[place] [id number] Effective for all dates [address] [address] [place] [address] Medicaid [facility] CHOICE/SELECT /CHOICE PLUS/ALL PAYORS [id number] 04/12/2022-Pres ent [address] [address] [place] [address] O [facility] MEDICAID [id number] Effective for all dates ATTN CLAIMS DEPARTMENT [address] [place] [address] Medicaid Managed Care [facility] MEDICAID [id number] Effective for all dates ATTN CLAIMS DEPARTMENT [address] [place] [address] Medicaid Managed Care [facility] MEDICAID [id number] Effective for all dates ATTN CLAIMS DEPARTMENT [address] [place] [address] Medicaid Managed Care [facility] MEDICAID [id number] Effective for all dates ATTN CLAIMS DEPARTMENT [address] [place] [address] Medicaid Managed Care [facility] MEDICAID [id number] Effective for all dates ATTN CLAIMS DEPARTMENT [address] [place] [address] Medicaid Managed Care [facility] MEDICAID [id number] Effective for all dates ATTN CLAIMS DEPARTMENT [address] [place] [address] Medicaid Managed Care [facility] MEDICAID [id number] Effective for all dates ATTN CLAIMS DEPARTMENT [address] [place] [address] Medicaid Managed Care [facility] MEDICAID [id number] Effective for all dates ATTN CLAIMS DEPARTMENT [address] [place] [address] Medicaid Managed Care [facility] MEDICAID [id number] Effective for all dates ATTN CLAIMS DEPARTMENT [address] [place] [address] Medicaid Managed Care [facility] MEDICAID [id number] Effective for all dates ATTN CLAIMS DEPARTMENT [address] [place] [address] Medicaid Managed Care [facility] MEDICAID [id number] Effective for all dates ATTN CLAIMS DEPARTMENT [address] [place] [address] Medicaid Managed Care [facility] MEDICAID [id number] Effective for all dates ATTN CLAIMS DEPARTMENT [address] [place] [address] Medicaid Managed Care [facility] MEDICAID [id number] Effective for all dates ATTN CLAIMS DEPARTMENT [address] [place] [address] Medicaid Managed Care [facility] MEDICAID [id number] Effective for all dates ATTN CLAIMS DEPARTMENT [address] [place] [address] Medicaid Managed Care Care Teams Wood Getter Relationship Specialty Start Date End Date Claudio Valle MD PCP - General 02/07/18
== END 2024-05-20 15:42 | disposition home or self-care (01) ==
LOC: ANHLAB 15:42
PROVIDERS: PCP Family Medicine; Visit Provider Nurse Practitioner Family
DX: E66.1 Drug-induced obesity (principal)
CPT/HCPCS: 36415; 82728

== ENCOUNTER 2024-09-17 12:26 | Outpatient (CLI) | payer OTHER, SELFPAY ==
--- NOTE | ~2024-09-17 | CT_ITS ---
CT of the Abdomen and Pelvis: Indication: Abdominal pain Technique: 2.5 mm axial scans were obtained through the abdomen and pelvis following intravenous adm inistration of 100 cc of Omnipaque 350. Dose reduction technique was used on this scan by utilizing a utomated exposure control and iterative reconstruction technique. The dose-length product (DLP) was 5 35.32 mGy-cm. COMPARISON: 05/31/2022 Findings: Scans through the lung bases are unremarkable. The liver, spleen, pancreas, adrenals and kidneys are within normal limits. Cholecystectomy clips are present. There are atherosclerotic calcifications of the aorta. No lymphadenopathy. There is mild diffuse large bowel wall thickening. No bowel obstruction. No abscess or free air. Images through the pelvis were performed. Urinary bladder unremarkable. No adnexal mass. No ascites. Impression: Findings compatible with pancolitis. No abscess or free air. Reviewed, dictated and finalized at [facility]. Impression: Findings compatible with pancolitis. No abscess or free air.
--- OUTSIDE RECORDS SUMMARY | 2024-09-17 14:21 | XMS_ITS | Clinical Summary ---
Author Organization [employer] [facility] Address [address] [place] [address] Care Team Providers Care Key Bed Installer Name Role Phone Claudio Valle MD Primary Care Provider [phone] Source Comments [facility],non-owned Affiliates and Associated Physician Practices is amultiple site organization consisting of ambulatory clinics and hospital sitesin [place], [place], [place] and [place]. This disclosure is being madepursuant to the Care Everywhere program and may not contain all information available regarding this patient. Last updated 17.[employer] Allergies No known active allergies Medications * Be aware that medications may not be up to date on this document. Alwaysverify current medications with the patient. omeprazole (PRILOSEC) 40 MG capsule Take 1 (one) capsule by mouth 2 times daily, before breakfast and supper 9 9 Active ALPRAZolam (XANAX) 0.5 MG tablet Take 1 (one) tablet by mouth 2 times daily as needed 0 9 Active escitalopram (LEXAPRO) 20 MG tablet once daily 1 Active ARIPiprazole (ABILIFY) 2 MG tablet Take 1 (one) tablet by mouth once daily 1 Active amphetamine-dex troamphetamine XR 24hr (Adderall XR) 20 MG capsule Take 1 (one) capsule by mouth every morning Active clotrimazole-be tamethasone (Lotrisone) 1-0.05 % cream 3 Active levothyroxine (Synthroid) 50 MCG tablet Take 1 (one) tablet by mouth once daily 3 Active Trintellix 20 MG tablet 4 Active valACYclovir (Valtrex) 500 MG tablet TAKE 1 TABLET BY MOUTH TWICE DAILY FOR 10 DAYS THEN 1 ONCE DAILY 4 Active eszopiclone (Lunesta) 1 MG tablet TAKE 1 TABLET BY MOUTH ONCE DAILY AT BEDTIME NEEDED FOR INSOMNIA 4 Active estradiol (Estrace) 0.1 MG/GM vaginal cream 4 Active tretinoin (Retin-A) 0.025 % creamIndication s:Acne vulgaris Pea sized amount to entire face at night. 30 days supply. 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 [...] drink = 0.6 oz pur e alcohol) Comments Unknown Sex and Gender Information Value Date Recorded Sex Assigned at Not on file Legal Sex Female 5:05 AM KITCHEN SUPERVISOR Gender Identity Not on file Sexual Orientation Not on file Plan of Treatment Upcoming Encounters Date Type Department Care Team (Late st Contact Info) Description 02/09/2025 9:10 AM KITCHEN SUPERVISOR Office Visit [facility] - Dermatology [address] [place] [address], [facility] [place] [id number] Wilmar Herbert MD [address] [place] [address] [place] [phone] Health Maintenance Due Date Last Done Comments [...] 50+ (1 of 2 - PCV) 1992 COVID-19 VACCINE (1 - 2023-2 5 season) 2023 ZOSTER VACCINE (1 of 2) 12/14/2023 DEPRESSION SCREENING 04/09/2024 INFLUENZA VACCINE (Season Ended) 2024 02/04/20 20 HIB VACCINE Aged Out No longer eligi ble based on patient's age to complete this topic HPV VACCINE Aged Out No longer eligi ble based on patient's age to complete this topic MENINGOCOCCAL (Group B) VACC INE SHARED DECISION-MAKING Aged Out No longer eligibl e based on patient's age to complete this topic MENINGOCOCCAL GROUPS A/C/Y/W VACCINE Aged Out No longer eligible b ased on patient's age to complete this topic Insurance [facility] CARE [employer] SELF PAY NO INSURANCE Member Subscriber Plan / Payer (Ef fective for All Dates) Name:Sandra Conn Member ID:Not on file Relation to Subscriber:Not on file Name:SANDRA CONN Subscriber ID:Not on file (Home) Address: [address] [place] [address] Payer ID:Not on file Group ID:Not on file Type:Self Pay Address: [place], [place] [employer] SELF PAY NO INSURANCE Member Subscriber Plan / Payer (Ef fective for All Dates) Name:Sandra Conn Member ID:Not on file Relation to Subscriber:Not on file Name:SANDRA CONN Subscriber ID:Not on file (Home) Address: [address] [place] [address] Payer ID:Not on file Group ID:Not on file Type:Self Pay Address: [place], [place] [employer] SELF PAY NO INSURANCE Member Subscriber Plan / Payer (Ef fective for All Dates) Name:Sandra Conn Member ID:Not on file Relation to Subscriber:Not on file Name:SANDRA CONN Subscriber ID:Not on file (Home) Address: [address] [place] [id number] Payer ID:Not on file Group ID:Not on file Type:Self Pay Address: [place], [place] [employer] [facility] [employer] [facility] CARE CARE [place] [address] MEDICAID - OUT OF [facility] Care Teams Key Bed Installer Relationship Specialty Start Date End Date Claudio Valle MD PCP - General 02/07/18
--- OUTSIDE RECORDS SUMMARY | 2024-09-17 14:21 | XMS_ITS | Referral Summary ---
Author Organization [facility] Address [address] [place] [phone] Care Team Providers Care Marketing Database Analyst Name Role Phone Claudio Valle MD Primary Care Provider [phone] Encounters Date Type Department Care Team Description 08/14/2024 9:45 AM CDT Procedure visit [facility] Orthopaedic Surgery [address] [facility] [address] [place] [address] Cuong Raymond NP Plantar fasciitis (Primary Dx) 07/30/2024 10:00 AM CDT - 07/30/2024 11:59 PM CDT Hospital Encounter [facility] [address] [place] [address] [address] [place] [address] Right foot pain Discharge Disposition: Discharge to home or self care 07/30/2024 10:30 AM CDT Office Visit [facility] Orthopaedic Surgery [address] [facility] [address] [place] [address] Cuong Raymond NP Right foot pain (Primary Dx) 07/10/2024 9:00 AM CDT Procedure visit [facility] Ophthalmology [address] [facility] 6th [place] [address] Neri Lopez MD Facial nerve [...] ECP at [facility] for contacts/glasses Anxiety with depression 05/29/2019 [...] 12/08/2015 Immunizations Immunization Administration Dates Next Due Influenza, Quadrivalent, Spl it, Preservative Free, Intramuscular 02/04/2020 Social History Tobacco Use Types Packs/Day Years Used Date Smoking Tobacco: Former Cigarettes 0.5 33 0 04/09/1989 - 04/09/2022 Smokeless Tobacco: Never Tobacco Cessation:Counseling Given: Not Answered Alcohol Use Standard Drinks/Week Comments Yes 0 [...] on file Legal Sex Female 4:26 PM INTERCHANGE AGENT Gender Identity Female 10/09/2019 10:03 AM CDT Sexual Orientation Not on file Last Filed Vital Signs Vital Sign Reading Time Taken Comments Blood Pressure 108/64 03/02/2019 5:29 PM INTERCHANGE AGENT Pulse 68 03/02/2019 5:29 PM INTERCHANGE AGENT Temperature 36.7 C (98 F) 03/02/2019 5:29 PM INTERCHANGE AGENT Respiratory Rate - - Oxygen Saturation 99% 03/02/2019 5:29 PM INTERCHANGE AGENT Inhaled Oxygen Concentration - - Weight 66.2 kg (146 lb) 02/03/2021 10:08 AM CDT Height 160.7 cm (5' 3.25) 02/03/2021 10:08 AM C DT Body Mass Index 25.66 02/03/2021 10:08 AM CDT Plan of Treatment Not on file Procedures Procedure Name Priority Date/Time Associated Diagnosis Comments XR FOOT RIGHT 3 OR MORE VIEWS Schedule Routine, Read Routine (OP Routine) 07/30/2024 10:26 AM CDT Right foot pain FUNCTIONAL INJECTION, BOTULINUMTOXIN - FACIAL NERVE - OS - LEFT EYE Routine 07/10/2024 1:44 PM CDT Facial nerve spasm HEPATITIS C ANTIBODY Routine Gen Lab 07/25/2017 12:22 PM CDT from Last 3 Months or Most Recently Relevant to Health Maintenance Results * XR Foot Right 3 or More Views (07/30/2024 10:26 AM CDT) Anatomical Region Laterality Modality Lower Extremities, Foot Right Computed Radiography 07/30/2024 10:5 4 AM CDT Impressions 07/30/2024 10:54 AM CDT 1. 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 2. Right heel spur. Electronically signed by: Erick Means M.D. Narrative 07/30/2024 10:54 AM CDT EXAMINATION: XR FOOT RIGHT 3 OR MORE VIEWS HISTORY: Right foot pain FINDINGS: 3 view weightbearing examination the right foot is compared with a study dated 08/12/2018. There is unchanged, moderate to severe 1st metatarsophalangeal osteoarthritis. There is no fracture or dislocation. There is a small plantar heel spur. Procedure Note Erick Means MD - 07/30/2024 EXAMINATION: XR FOOT RIGHT 3 OR MORE VIEWS HISTORY: Right foot pain FINDINGS: 3 view weightbearing examination the right foot is compared with a study dated 08/12/2018. There is unchanged, moderate to severe 1st metatarsophalangeal osteoarthritis. There is no fracture or dislocation. There is a small plantar heel spur. IMPRESSION: 1. 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 2. Right heel spur. Electronically signed by: Erick Means M.D. Cuong Raymond PRODUCTION REPAIRER IMG XR PROCEDURES Final Re sult * Functional Injection, Botulinumtoxin - Facial Nerve - OS - Left Eye (07/10/2024 1:44 PM CDT) Anatomical Region Laterality Modality Head Other Narrative 07/10/2024 1:44 PM CDT Injection, Botulinumtoxin The injection site was prepped with a alcohol prep pad. Bacteriostatic saline at 5 units per 0.1ml. The medication administered today was not supplied by the patient or insurance. Post-op there were no complications during today's treatment. The patient received verbal post procedure care education. us Neri Lopez MD [facility] PROCEDURES Final Result * Hepatitis C antibody (07/25/2017 12:22 PM CDT) Hep C Ab Nonreactive Nonreactive [facility] Comment: Interpretive Data Positive and greyzone results should be confirmed by a molecular method. If positive or greyzone, a second separately collected sample should be submitted for Hepatitis C Virus RNA. Detection and Quantitation by Real-Time Reverse Bingo Clerk-PCR.Current Interpretive data was last revised on 2016. Blood specimen (specimen) 07/25/2017 12:22 PM CDT 07/25/2017 2:06 PM CDT Narrative [facility] - 07/26/2017 9:17 AM CDT Sofya Valentin NP LAB MICROBIOLOGY - GENERAL ORDERABLES Edited Result - Final [facility] [place] [address] from Last 3 Months or Most Recently Relevant to Health Maintenance Insurance [facility] CHOICE PLUS [facility] HMO/PPO Address: [address] [place] [address] [facility] CHOICE PLUS [facility] HMO/PPO Address: [address] [place] [address] Care Teams Marketing Database Analyst Relationship Specialty Start Date End Date Claudio Valle MD [address] [address] PCP - General Family Medicine 07/18/18
--- OUTSIDE RECORDS SUMMARY | 2024-09-17 14:21 | XMS_ITS | Clinical Summary ---
Author Organization [facility] Address Formerly [place] [address] Care Team Providers Care Gas Appliance Mechanic Name Role Phone Claudio Valle MD Primary Care Provider [phone] Allergies Active Allergy Reactions Criticality Noted Date [...] Description 08/14/2024 9:45 AM CDT Procedure visit [facility] Orthopaedic Surgery [address] [place] [address] Office [facility] [address] [place] [phone] Cuong Raymond NP Plantar fasciitis (Primary Dx) 07/30/2024 10:30 AM CDT Office Visit [facility] Orthopaedic Surgery [address] [place] [address] Office Building [address] [place] [address] Cuong Raymond NP Right foot pain (Primary Dx) 07/30/2024 10:00 AM CDT - 07/30/2024 11:59 PM CDT Hospital Encounter [facility] [address] [place] [address] [address] [place] [phone] Right foot pain Discharge Disposition: Discharge to home or self care 07/10/2024 9:00 AM CDT Procedure visit [facility] Ophthalmology [address] [facility] 6th [place] [address] Neri Lopez, MD Facial nerve spasm (Primary Dx) from Last 3 Months Immunizations Immunization Administration Dates Next Due Influenza, Quadrivalent, Spl it, Preservative Free, Intramuscular 02/04/2020 Surgical History Surgery Date Site/Laterality Comments [place] DELIVERY ONLY Section - (Added by TW Conv) SECTION 04/09/2007 - 04/08/2008 SECTION 04/09/2011 - 04/08/2012 FOOT SURGERY 04/09/2014 - 04/08/2015 bone spur removal CHOLECYSTECTOMY 2019 Medical History Medical History Date Comments Anxiety [...] Arthritis Depression Gastric reflux Pneumonia Peptic ulceration GERD (gastroesophageal reflu x disease) 2018 Family History Medical History Relation Name Comments Early Brother 1 Heart attack Brother 1 Heart disease Brother 1 Family history of [...] - Relation: Grandfather (Added by TW Conv) Memory loss Maternal Grandmother Fallon Miscarriages / Stillbirths Maternal Grandmother Fallon Rashes / Skin problems Mother Diabetes Mother's Sister Diabetes Other 1 Paternal Grandmother Rheum arthritis Other 1 Paternal Grandmother Fami ly history of rheumatoid arthritis - Relation: Grandmother (Added by TW Conv) Arthritis Other 2 Mother Osteoarthritis Other 2 Mother Family histor y of osteoarthritis - Relation: Grandmother (Added by TW Conv) Heart disease Paternal Grandfather Hypertension Paternal Grandfather Memory loss Paternal Grandfather Stroke Paternal Grandmother Eudetta Developmental delay Son Relation Name Status Comments Brother 1 Brother 2 Father Maternal Grandfather Maternal Grandmother Fallon Mother Alive Mother's Sister Other 1 Paternal Grandmother Other 2 Mother Paternal Grandfather Paternal Grandmother Geetha Son Alive Social History Tobacco Use Types Packs/Day Years [...] on file Legal Sex Female 4:26 PM BREASTFEEDING PEER COUNSELOR Gender Identity Female 10/09/2019 10:03 AM CDT Sexual Orientation Not on file Obstetrics History Last Filed Vital Signs Vital Sign Reading Time Taken Comments Blood Pressure 108/64 03/02/2019 5:29 PM BREASTFEEDING PEER COUNSELOR Pulse 68 03/02/2019 5:29 PM BREASTFEEDING PEER COUNSELOR Temperature 36.7 C (98 F) 03/02/2019 5:29 PM BREASTFEEDING PEER COUNSELOR Respiratory Rate - - Oxygen Saturation 99% 03/02/2019 5:29 PM BREASTFEEDING PEER COUNSELOR Inhaled Oxygen Concentration - - Weight 66.2 kg (146 lb) 02/03/2021 10:08 AM CDT Height 160.7 cm (5' 3.25) 02/03/2021 10:08 AM C DT Body Mass Index 25.66 02/03/2021 10:08 AM CDT Plan of Treatment Health Maintenance Due Date Last Done Comments Breast Cancer Screening-Mammogram 1973 Cervical Cancer Screening 1973 Colon Cancer Screening-Colonoscopy 1973 Depression Screening 1973 DTaP/Tdap/Td Vaccine (1 - Tdap) 1984 Hepatitis B Screening 12/14/1991 Regular Well Visit/Exam 18-64 12/14/1991 Zoster Vaccine (1 of 2) 12/14/2023 Influenza Vaccine (Season Ended) 2024 02/04/20 20 Hepatitis C Screening Completed 07/25/2017 Pneumococcal vaccine <65 Aged Out No longer eligible based on patient's age to complete this topic Procedures Procedure Name Priority Date/Time Associated Diagnosis [...] signed by: Erick Means M.D. Cuong Raymond BOLOGNA MAKER IMG XR PROCEDURES Final Re sult * [...] post procedure care education. Neri Lopez MD [facility] PROCEDURES Final Result * Hepatitis C antibody (07/25/2017 12:22 PM CDT) Hep C Ab Nonreactive Nonreactive [facility] Comment: Interpretive Data Positive and greyzone results should be confirmed by a molecular method. If positive or greyzone, a second separately collected sample should be submitted for Hepatitis C Virus RNA. Detection and Quantitation by Real-Time Reverse Waiter/Waitress Take Out-PCR.Current Interpretive data was last revised on 2016. Blood specimen (specimen) 07/25/2017 12:22 PM CDT 07/25/2017 2:06 PM CDT Narrative [facility] - 07/26/2017 9:17 AM CDT Sofya Valentin NP LAB MICROBIOLOGY - GENERAL ORDERABLES Edited Result - Final [facility] One [facility] Department [place] [address] from Last 3 Months or Most Recently Relevant to Health Maintenance [address] [place] [address] [facility]US [facility] H[facility]/PPO Address: [address] [address] [place] [address] [facility] CHO[facility] H[facility]/PPO Address: [address] [address] [place] [address] Care Teams Gas Appliance Mechanic Relationship Specialty Start Date End Date Claudio Valle MD [address] [address] PCP - General Family Medicine 07/18/18
== END 2024-09-17 12:27 | disposition home or self-care (01) ==
PROVIDERS: PCP Nurse Practitioner Family; Visit Provider Nurse Practitioner Family
DX: R10.30 Lower abdominal pain, unspecified (principal); R19.7 Diarrhea, unspecified; K92.1 Melena
CPT/HCPCS: 74177; Q9967

== ENCOUNTER 2024-10-01 08:37 | Outpatient (CLI) | payer OTHER, SELFPAY ==
--- NOTE | ~2024-10-01 | MM_ITS ---
EXAMINATION: MM screening [facility] BI w raina HISTORY: Screening mammogram TECHNIQUE: Craniocaudal and mediolateral oblique 3-D tomosynthesis images were obtained and synthetic 2-D images were generated. CAD analysis was submitted and interpreted. COMPARISON: 04/25/2023, 02/01/2022, 11/08/2020 BREAST PARENCHYMAL COMPOSITION:Not Dense. There are scattered areas of fibroglandular density. FINDINGS: No suspicious mass, calcification, or architectural distortion are identified in either nathanael ast to suggest malignancy. There has been no suspicious interval change. IMPRESSION: No mammographic evidence of malignancy. Recommend routine screening mammography in one year. BI-RADS Category 1: Negative Reviewed, dictated and finalized at location .
== END 2024-10-01 08:38 | disposition home or self-care (01) ==
LOC: ANHIMG 08:39
PROVIDERS: PCP Nurse Practitioner Family; Visit Provider Obstetrics & Gynecology
DX: Z12.31 Encounter for screening mammogram for malignant neoplasm of breast (principal)
CPT/HCPCS: 77063; 77067

== ENCOUNTER 2024-10-16 00:25 | Day surgery (SDC) | payer OTHER, SELFPAY ==
--- OUTSIDE RECORDS SUMMARY | 2024-10-16 00:27 | XMS_ITS | Referral Summary ---
Author Organization [facility] Address [address] [place] [address] Care Team Providers Care Chicken Picker Name Role Phone Claudio Valle MD Primary Care Provider [phone] Encounters Date Type Department Care Team Description 08/14/2024 9:45 AM CDT Procedure visit [facility] Orthopaedic Surgery [address] [place] [address] Medical Office Building [address] [place] [address] Cuong Raymond NP Plantar fasciitis (Primary Dx) 07/30/2024 10:00 AM CDT - 07/30/2024 11:59 PM CDT Hospital Encounter [facility] [address] [place] [address] [address] [place] [address] Right foot pain Discharge Disposition: Discharge to home or self care 07/30/2024 10:30 AM CDT Office Visit [facility] Orthopaedic Surgery [address] [place] [address] Medical Office Building [address] [place] [address] Cuong Raymond NP Right foot pain (Primary Dx) from Last 3 Months Allergies [...] PRN; okay to follow with ECP at [facility] for contacts/glasses Anxiety with depression 05/29/2019 [...] on file Legal Sex Female 4:26 PM FITTINGS TIGHTENER Gender Identity Female 10/09/2019 10:03 AM CDT Sexual Orientation Not on file Last Filed Vital Signs Vital Sign Reading Time Taken Comments Blood Pressure 108/64 03/02/2019 5:29 PM FITTINGS TIGHTENER Pulse 68 03/02/2019 5:29 PM FITTINGS TIGHTENER Temperature 36.7 C (98 F) 03/02/2019 5:29 PM FITTINGS TIGHTENER Respiratory Rate - - Oxygen Saturation 99% 03/02/2019 5:29 PM FITTINGS TIGHTENER Inhaled Oxygen Concentration - - Weight 66.2 [...] 07/30/2024 10:26 AM CDT Right foot pain HEPATITIS C ANTIBODY Routine Gen Lab 07/25/2017 [...] signed by: Erick Means M.D. Cuong Raymond SEE WHEELER IMG XR PROCEDURES Final Re sult * Hepatitis C antibody (07/25/2017 12:22 PM CDT) Hep C Ab Nonreactive Nonreactive [facility] Comment: Interpretive Data Positive and greyzone results should be confirmed by a molecular method. If positive or greyzone, a second separately collected sample should be submitted for Hepatitis C Virus RNA. Detection and Quantitation by Real-Time Reverse Water Pump Installer-PCR.Current Interpretive data was last revised on 2016. Blood specimen (specimen) 07/25/2017 12:22 PM CDT 07/25/2017 2:06 PM CDT Narrative [facility] - 07/26/2017 9:17 AM CDT Sofya Valentin NP LAB MICROBIOLOGY - GENERAL ORDERABLES Edited Result - Final [facility] One [facility] [place] [address] from Last 3 Months or Most Recently Relevant to Health Maintenance Insurance [facility] Care Teams Chicken Picker Relationship Specialty Start Date End Date Claudio Valle MD [address] [id number] PCP - General Family Medicine 07/18/18
--- OUTSIDE RECORDS SUMMARY | 2024-10-16 00:27 | XMS_ITS | Clinical Summary ---
Author Organization [facility] Address [address] [facility] [place] [address] Care Team Providers Care Police Academy Program Coordinator Name Role Phone Claudio Valle MD Primary Care Provider [phone] Source Comments [facility],non-owned Affiliates and Associated Physician Practices is amultiple site organization consisting of ambulatory clinics and hospital sitesin [place], [place], [place] and [place]. This disclosure is being madepursuant to the Care Everywhere program and may not contain all information available regarding this patient. Last updated 17[employer] Allergies No known active allergies Medications * [...] PRN; okay to follow with ECP at [facility] for contacts/glasses Anxiety with depression 05/29/2019 [...] on file Legal Sex Female 5:05 AM SHELTER DIRECTOR Gender Identity Not on file Sexual Orientation Not on file Plan of Treatment Upcoming Encounters Date Type Department Care Team (Late st Contact Info) Description 02/09/2025 9:10 AM SHELTER DIRECTOR Office Visit [facility] - Dermatology [address] [place] [address], [facility] [place] [id number] Wilmar Herbert MD [address] [place] [address] [place] [phone] Health Maintenance Due Date Last Done Comments COLOGUARD (AGES 45-75) - COL ON CA SCREENING 1973 COLON MONITORING 1973 COLONOSCOPY - COLON CA SCREENING 1973 CT COLONOGRAPHY - COLON CA SCREENING 1973 Colorectal Cancer Screening 1973 FIT - COLON CA SCREENING 1973 FLEX SIG - COLON CA SCREENING 1973 LIPID TESTING 1973 MAMMOGRAM 1973 HIV SCREENING 1988 HEPATITIS C SCREENING 12/09/1991 DTAP/TDAP/TD VACCINES (1 - Tdap) 1992 HEPATITIS B VACCINE (1 of 3 - 19+ 3-dose series) 1992 PNEUMOCOCCAL VACCINE 50+ (1 of 2 - PCV) 1992 PAP SMEAR 1994 COVID-19 VACCINE (1 - 2023-2 5 season) 2023 ZOSTER VACCINE (1 of 2) 12/14/2023 DEPRESSION SCREENING 04/09/2024 INFLUENZA VACCINE (#1) 2024 02/04/2020 HIB VACCINE Aged Out No longer eligi [...] patient's age to complete this topic Insurance [facility] [place] [address] [employer] SELF PAY NO INSURANCE Member Subscriber Plan / Payer (Ef fective for All Dates) Name:Sandra Conn Member ID:Not on file Relation to Subscriber:Not on file Name:SANDRA CONN Subscriber ID:Not on file (Home) Address: [address] [place] [address] Payer ID:Not on file Group ID:Not on file Type:Self Pay Address: [place], [place] [employer] SELF PAY NO INSURANCE Member Subscriber Plan / Payer (Ef fective for All Dates) Name:Sandra Conn Member ID:Not on file Relation to Subscriber:Not on file Name:SANDRA CONN Subscriber ID:Not on file (Home) Address: [address] [place] [address] Payer ID:Not on file Group ID:Not on file Type:Self Pay Address: [place], [place] [employer] SELF PAY NO INSURANCE Member Subscriber Plan / Payer (Ef fective for All Dates) Name:Sandra Conn Member ID:Not on file Relation to Subscriber:Not on file Name:SANDRA CONN Subscriber ID:Not on file (Home) Address: [address] [place] [id number] Payer ID:Not on file Group ID:Not on file Type:Self Pay Address: [place] [employer] [facility] [employer] [facility] HEALTH [facility] [place] [id number] MEDICAID - OUT OF [facility] Care Teams Police Academy Program Coordinator Relationship Specialty Start Date End Date Claudio Valle MD PCP - General 02/07/18
--- OUTSIDE RECORDS SUMMARY | 2024-10-16 00:28 | XMS_ITS | Continuity of Care Document ---
Author Organization [facility] Address [address] [place] [address] [place] [address] Phone Care Team Providers Care Keyboard Instrument Repairer Name Role Phone Hawa Mcnamara Unavailable Unavailable Procedures Procedure Date Eye Exam, New Patient Advance Directives Directive Yes / No Effective Date File Name No Information Encounters Encounter Description Practice Location Reason(s) For Visit Diagnoses Date Provider Providers Copied on Encounter [facility], [address] [place] [address] [address], [place], [place], [id number], [place] tel:[phone] [facility] No Information [address] , [address], [place], [address], [place]. tel:[phone] Family History Family Member Type Diagnosis Age At Onset No Information Payers Payer name Insurance type Covered alliance party ID Authoriza tion(s) No Information Social History Type Description Quantity Date Captured Comments Sex Female Smoking Status No Information Chief Complaint And Reason For Visit No Information Reason For Referral Reason For Referral No Information History Of Present Illness Encounter Date Complaint History Of Prese nt Illness No Information Functional Status Date Functional Assessmen t No Information Instructions Date Instruction Additional Infor mation No Information Assessments Type Assessment Date No Information Patient Care Teams Name Effective Dates (start - stop) Status Members No Information
--- OUTSIDE RECORDS SUMMARY | 2024-10-16 00:28 | XMS_ITS | Clinical Summary ---
Author Organization [facility] Address Count includes the [facility] [place] [address] Care Team Providers Care Captain Fire Prevention Bureau Name Role Phone Claudio Valle MD Primary Care Provider [phone] Allergies Active Allergy Reactions Criticality Noted Date [...] Description 08/14/2024 9:45 AM CDT Procedure visit [facility] Orthopaedic Surgery [address] [place] [address] [address] [place] [address] Cuong Raymond NP Plantar fasciitis (Primary Dx) 07/30/2024 10:30 AM CDT Office Visit [facility] Orthopaedic Surgery [address] [place] [address] [address] [place] [address] Cuong Raymond NP Right foot pain (Primary Dx) 07/30/2024 10:00 AM CDT - 07/30/2024 11:59 PM CDT Hospital Encounter [facility] [address] [place] [address] [address] [place] [phone] Right foot pain Discharge Disposition: Discharge to home or self care from Last 3 Months Immunizations Immunization Administration Dates Next Due Influenza, Quadrivalent, Spl it, Preservative Free, Intramuscular 02/04/2020 Surgical History Surgery Date Site/Laterality Comments [place] DELIVERY ONLY Section - (Added by TW [...] Other 2 Mother Paternal Grandfather Paternal Grandmother Eudetta Son Alive Social History Tobacco Use Types [...] on file Legal Sex Female 4:26 PM EVS TECH Gender Identity Female 10/09/2019 10:03 AM CDT Sexual Orientation Not on file Obstetrics History Last Filed Vital Signs Vital Sign Reading Time Taken Comments Blood Pressure 108/64 03/02/2019 5:29 PM EVS TECH Pulse 68 03/02/2019 5:29 PM EVS TECH Temperature 36.7 C (98 F) 03/02/2019 5:29 PM EVS TECH Respiratory Rate - - Oxygen Saturation 99% 03/02/2019 5:29 PM EVS TECH Inhaled Oxygen Concentration - - Weight 66.2 [...] Vaccine (1 of 2) 12/14/2023 Influenza Vaccine (#1) 2024 02/04/2020 Hepatitis C Screening Completed 07/25/2017 Pneumococcal vaccine [...] signed by: Erick Means M.D. Cuong Raymond SUPERVISOR IN CHARGE IMG XR PROCEDURES Final Re sult * Hepatitis C antibody (07/25/2017 12:22 PM CDT) Hep C Ab Nonreactive Nonreactive [facility] Comment: Interpretive Data Positive and greyzone results should be confirmed by a molecular method. If positive or greyzone, a second separately collected sample should be submitted for Hepatitis C Virus RNA. Detection and Quantitation by Real-Time Reverse Calciner Operator Helper-PCR.Current Interpretive data was last revised on 2016. Blood specimen (specimen) 07/25/2017 12:22 PM CDT 07/25/2017 2:06 PM CDT Narrative [facility] - 07/26/2017 9:17 AM CDT Sofya Valentin NP LAB MICROBIOLOGY - GENERAL ORDERABLES Edited Result - Final [facility] One [facility] Department [place] [address] from Last 3 Months or Most Recently Relevant to Health Maintenance Insurance [facility] [place] [address] [facility] CHOICE PLUS Care Teams Captain Fire Prevention Bureau Relationship Specialty Start Date End Date Claudio Valle MD [address] [address] PCP - General Family Medicine 07/18/18
[2024-10-16 08:14] VITALS: BP 111/74; PULSE 98; RESP 16; TEMP 36.8; O2SAT 97
[2024-10-16 08:18] LABS: BEDSIDEPREGUCG Negative (Negative)
[2024-10-16] MEDS: LACTATED RINGERS 1,000 ML 150 ML IV CONT (08:25)
--- NOTE | 2024-10-16 08:51 | P.PNAN_ITS ---
Anes - Initial Pre Proc Eval Procedure: Operation Date: 10/16/24 09:30 Proposed Procedures p Diagnostic Colonoscopy - Nahid Monroy MD Date/Time: 10/16/24 08:51 Surgeon: Nahid Monroy MD Pre Op Diagnosis: Noninfective gastroenteritis and colitis, unspecif Patient Data Age: 48 Gender: F Height: 1.63 m Weight: 77.6 kg Last Vital Signs Temp 98.2 F 10/16/24 08:14 Pulse 98 10/16/24 08:14 Resp 16 10/16/24 08:14 BP 111/74 10/16/24 08:14 Pulse Ox 97 10/16/24 08:14 O2 Del Method Room Air 10/16/24 08:14 Allergies Allergy/AdvReac Type Severity Reaction Status Date / Time latex AdvReac Mild REDNESS/RASH Verified 10/16/24 08:12 WITH LATEX TAPE Macrobid Allergy Intermediate Rash Uncoded 10/16/24 08:12 Home Medications ?Medication ?Instructions ?Recorded ?Confirmed ?Type levothyroxine 50 mcg tablet 50 mcg PO . q.a.m. 02/06/23 10/16/24 History magnesium oxide 250 mg PO DAILY 11/28/23 10/16/24 History omeprazole 40 mg capsule,delayed 40 mg PO DAILY #90 caps 01/07/24 10/16/24 Rx release ferrous sulfate 137 mg (45 mg 137 mg PO BID 90 days #180 tabs 01/09/24 10/16/24 Rx iron) tablet,extended release (Slow Fe) alprazolam 0.5 mg tablet (Xanax) 0.5 mg PO TID PRN anxiety #90 tabs 02/15/24 10/09/24 Rx vortioxetine 20 mg tablet 20 mg PO DAILY #90 tabs 05/13/24 10/16/24 Rx (Trintellix) medical cannabis BYMOUTH 07/02/24 09/26/24 History rifaximin 550 mg tablet (Xifaxan) 550 mg PO TID 14 days #42 tabs 09/26/24 10/09/24 Rx aripiprazole 2 mg tablet (Abilify) 2 mg PO DAILY #90 tabs 09/29/24 10/16/24 Rx rifaximin 550 mg tablet (Xifaxan) 550 mg Tablet#6 Samples 10/07/24 10/09/24 Sample coenzyme Q10 200 mg capsule (Co 200 mg PO DAILY 10/09/24 10/16/24 History Q-10) liothyronine 5 mcg tablet 10 mcg PO DAILY 10/09/24 10/16/24 History tirzepatide (weight loss) 2.5 2.5 mg subcut WEEKLY 10/09/24 10/16/24 History mg/0.5 mL subcutaneous pen injector (Zepbound) valacyclovir 500 mg tablet 500 mg PO DAILY 10/09/24 10/16/24 History dextroamphetamine-amphetamine ER 20 mg PO QAM #30 caps 10/13/24 10/16/24 Rx 20 mg 24hr capsule,extend release (Adderall XR) Laboratory Tests 10/16/24 08:16 POC Urine HCG, Qual Negative (Negative) Patient hx anesthesia problems: none Family hx anesthesia problems: none Results Review: All pre-operative results and documents have been reviewed as part of the pre- operative evaluation. [facility] Past Medical History Medical History Pancolitis Blood in stool Lower abdominal pain Seborrhea ear canals Menopause Prediabetes Breast cancer screening by mammogram mammogram and breast ultrasound 09/28/2023 with cysts with no suspicious lesions. Decreased appetite Iron deficiency Enlarged liver Elevated fecal calprotectin Sigmoiditis Plantar fasciitis, bilateral Elevated fasting glucose fasting glucose 105 with hemoglobin A1c 5.6 on 05/10/2023. Hemoglobin A1c 5.8 on 02/06/2024. Bright red blood per rectum Diarrhea Thrush Obesity (BMI 30.0-34.9) Hypothyroidism, unspecified (02/01/23) TSH 4.44 with free T4 0.8 on 02/01/2023. TSH 3.19 with free T4 1.10 on 12/04/2023. TSH 3.40 with free T4 1.24 on 02/06/2024. Elevated hemoglobin A1c (01/24/23) hemoglobin A1c 5.8 on 01/24/2023. Glucose 105 with hemoglobin A1c 5.6 on 05/10/2023. Hemoglobin A1c 5.8 on 02/06/2024. BMI 29.0-29.9,adult Hx of adenomatous colonic polyps Mild colitis 07/05/2022 on colonoscopy with no polyps. Recheck in 5 years. Abdominal distension Colitis C difficile toxin 06/07/22. KUB negative 06/07/2022. Nausea (~05/30/22) Protein in urine (02/02/22) 2+ protein on urinalysis 02/02/2022. Urinalysis normal on 05/10/2023. Low ferritin (02/02/22) iron 57 with 16% saturation and ferritin low at 15 on 02/02/2022 with hemoglobin 14.7. Iron 42 with 13% saturation and ferritin 10 with hemoglobin 12.9 on 05/10/2023. Iron 44, 15% saturation, ferritin 48 on 12/04/2023. ferritin 21.1 on 05/20/2024. Fatigue Overweight (BMI 25.0-29.9) Community acquired pneumonia (~02/10/21) chest x-ray 02/10/2021 with right middle lobe and right lower lobe patchy infiltrate BMI 24.0-24.9, adult Chronic cough Chest x-ray 02/10/2021 with mild patchy infiltrates right middle lobe and right lower lobe BMI 25.0-25.9,adult BMI 28.0-28.9,adult Seasonal allergic rhinitis Acute non-recurrent maxillary sinusitis BMI 27.0-27.9,adult Chronic constipation Preoperative evaluation to rule out surgical contraindication Chronic neck pain Gastritis (03/19/20) gastritis on EGD 03/19/2020. Irritable bowel syndrome with constipation and diarrhea Tobacco use disorder, continuous 1 cigarette daily, vaping to quit Polyp of colon (03/19/20) Colon polyps on colonoscopy 03/19/2020 with recheck in 5 years, Dr. Cowart. Chronic nonallergic rhinitis Surgical History Surgical History Hx of cholecystectomy Family History Family History Grandparent Diabetes mellitus, Onset Age: 77 Depression, Onset Age: 79 Family history of rheumatoid arthritis Family history of cardiovascular disease Acute myocardial infarction Cerebrovascular accident, Onset Age: 77 Family history of Alzheimer's disease, Onset Age: 82 Family history of lung cancer Family history of dementia Family history of lupus erythematosus Mother Family history of cardiovascular disease Family history of arthritis Father Family history of arthritis Social History Social History Smoking packs per day: 0.5 Smoking cigarettes per day: 10.0 Years smoked: 25 Smoking pack-years: 12.50 Smoking status: Former smoker Tobacco type: cigarettes and e-cigarettes/vaping Alcohol intake: current Alcohol use details: Socially Substance use: never Substance use type: does not use Current Housing: Decline to Answer Concerned About Future Housing: Decline to Answer Difficulty Paying Gas/Electric Bills: Decline to Answer Difficulty Paying for Meds: Decline to Answer Currently Unemployed: Decline to Answer Education: Decline to Answer Difficulty w/ Childcare or Family Care: Decline to Answer Living arrangements: with family Gender identity (if verbalized by the patient): Female Spiritual care concerns: No Anes - Eval Final PreProcedure Day of Procedure 10/16/24 08:51 Patient weight: overweight Lungs: normal air movement Airway: Mallampati scale class II Neurological: alert and oriented Last oral intake: >/= 8 hours ASA classification: II Emergent: no Anesthetic plan: proceed Anesthesia type and monitoring: general GIVS and standard monitoring Results Review: All pre-operative results and documents have been reviewed as part of the pre- operative evaluation. Hypothyroidism, ex smoker, quit 2020. Informed Consent: The patient's anesthetic plan and its attendant risks and benefits were discussed with the patient/family/POA. Questions were solicited and answers provided to the satisfaction of the patient/family/POA.
--- NOTE | 2024-10-16 09:15 | WPDHPUPDATE1 ---
History and Physical Update Update Date/Time: 10/16/24 09:15 History and Physical has been reviewed, including an updated exam of the patient. There are NO changes in the patient's condition. Risks, benefits, and alternatives have been discussed and questions answered. Patient agrees to proceed with procedure.
--- NOTE | 2024-10-16 09:33 | S_PTH ---
PATIENT: Esther Allan LOC: [facility] Junior#:[id number] AGE/SX: 48/F ROOM: RE10/16/[address]: Nahid Monroy MD : 1975 BED: DIS: 10/16/2024 SPEC #: [id number] RECD: 10/16/24 13:14 STATUS: CHANDANA REQ #: [id number] ISAÍAS: 10/16/24 09:[address]: Nahid Monroy DEPT: [facility] Surgical RECD BY: Juli Chavis ENTERED: 10/16/24 13:15 SP TYPE: Surgical OTHR DR: Rhonda Sandy APRN Tissues: A - Colon Biopsy B - Colon Biopsy C - Colon Biopsy Procedures: Hematoxylin and Eosin Stain Gross and Microscopic Level 4
[2024-10-16 09:35] VITALS: BP 89/56; PULSE 79; RESP 25; O2SAT 96
[2024-10-16 09:45] VITALS: BP 99/71; PULSE 81; RESP 21; O2SAT 98
[2024-10-16 09:55] VITALS: BP 101/78; PULSE 85; RESP 19; O2SAT 100
== END 2024-10-16 10:10 | disposition home or self-care (01) ==
PROVIDERS: Anesthesiology; PCP Nurse Practitioner Family; Referring Provider Nurse Practitioner; Visit Provider Internal Medicine Gastroenterology
PROC: 0DJD8ZZ Inspection of Lower Intestinal Tract, Via Natural or Artificial Opening Endoscopic (ICD-10-PCS; CPT 45378; principal; 2024-10-16 09:30)
DX: K52.838 Other microscopic colitis (principal); R73.03 Prediabetes; E03.9 Hypothyroidism, unspecified; K21.9 Gastro-esophageal reflux disease without esophagitis; E61.1 Iron deficiency; R05.3 Chronic cough; K59.09 Other constipation; J31.0 Chronic rhinitis; G89.29 Other chronic pain; M54.2 Cervicalgia; Z79.52 Long term (current) use of systemic steroids; Z79.85 Long-term (current) use of injectable non-insulin antidiabetic drugs; Z98.890 Other specified postprocedural states; Z90.49 Acquired absence of other specified parts of digestive tract; Z87.891 Personal history of nicotine dependence; Z87.19 Personal history of other diseases of the digestive system; Z86.0100 Personal history of colon polyps, unspecified; Z80.1 Family history of malignant neoplasm of trachea, bronchus and lung; Z82.49 Family history of ischemic heart disease and other diseases of the circulatory system
CPT/HCPCS: 45380; 88305; J2003; J2704; J7120

== ENCOUNTER 2025-02-13 12:00 | Emergency (ER) | payer OTHER, SELFPAY ==
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
[2025-02-13 12:00] VITALS: BP 128/90; PULSE 90; RESP 16; TEMP 36.8; O2SAT 98
--- OUTSIDE RECORDS SUMMARY | 2025-02-13 12:23 | XMS_ITS | Clinical Summary ---
Author Organization [employer] [facility] Address [address] [facility] [place] [address] Care Team Providers Care Claims Associate Name Role Phone Claudio Valle MD Primary Care Provider [phone] Source Comments [facility],non-owned Affiliates and Associated Physician Practices is amultiple site organization consisting of ambulatory clinics and hospital sitesin [place], [place], [place] and [place]. This disclosure is being madepursuant to the Care Everywhere program and may not contain all information available regarding this patient. Last updated 17.[employer] Allergies No known active allergies Medications * [...] entire face at night. 30 days supply. 40 g 11 5 Active spironolactone (Aldactone) 50 MG tabletIndicatio ns:Acne vulgaris,Hirsut ism Take 1 (one) tablet by mouth once daily 30 tablet 3 5 Active ketoconazole (Nizoral) 2 % shampooIndicati ons:Other seborrheic dermatitis Apply to ears and behind ears, leave on for 3 minutes, then rinse; three times weekly. Can also apply to scalp if itchy. 30 days supply 120 mL 5 5 Active tretinoin (Retin-A) 0.025 % creamIndication s:Acne vulgaris Pea sized amount to entire face at night. 30 days supply. 45 g 11 4 02/10/20 25 Discontinu ed(Reorder ) Active Problems Problem Noted Date Diagnosed Date [...] PRN; okay to follow with ECP at [facility] for contacts/glasses Anxiety with depression 05/29/2019 Attention [...] Encounters Date Type Department Care Team Description 02/09/2025 9:10 AM ANIMAL COP Office Visit [facility] - Dermatology [address] [place] [address] [place] [address] Wilmar Herbert MD Acne vulgaris (Primary Dx); Hirsutism; Lentigines; Seborrheic keratosis; Multiple benign nevi; De León angioma; Other seborrheic dermatitis; Miliaria 02/09/2025 Travel from Last 3 Months Immunizations Immunization Administration Dates Next Due INFLUENZA [...] drink = 0.6 oz pur e alcohol) PHQ-2 Answer Date Recorded Patient Health Questionnaire-2 Score 0 02/09/2025 Comments Unknown Sex and Gender Information Value Date Recorded Sex Assigned at Not on file Legal Sex Female 5:05 AM ANIMAL COP Gender Identity Not on file Sexual Orientation Not on file Plan of Treatment Upcoming Encounters Date Type Department Care Team (Late st Contact Info) Description 08/10/2025 9:20 AM CDT Office Visit [facility]ology [address] [place] [address], [place] [address] Wilmar Herbert MD [address] [place] [address] [address] [place] [address] Health Maintenance Due Date Last Done Comments [...] 2 - PCV) 1992 PAP SMEAR 1994 ZOSTER VACCINE (1 of 2) 12/14/2023 COVID-19 VACCINE (1 - 2023-2 5 season) 2024 INFLUENZA VACCINE (#1) 2024 02/04/2020 DEPRESSION SCREENING Completed 02/09/2025 HIB VACCINE Aged Out No longer eligi [...] patient's age to complete this topic Insurance [facility] SELF PAY NO INSURANCE Member Subscriber Plan / Payer (Ef fective for All Dates) Name:Sandra Conn Member ID:Not on file Relation to Subscriber:Not on file Name:SANDRA CONN Subscriber ID:Not on file (Home) Address: [address] [place] [phone] Payer ID:Not on file Group ID:Not on file Type:Self Pay Address: [place] SELF PAY NO INSURANCE Member Subscriber Plan / Payer (Ef fective for All Dates) Name:Sandra Conn Member ID:Not on file Relation to Subscriber:Not on file Name:SANDRA CONN Subscriber ID:Not on file (Home) Address: [address] [place] [phone] Payer ID:Not on file Group ID:Not on file Type:Self Pay Address: [place] SELF PAY NO INSURANCE Member Subscriber Plan / Payer (Ef fective for All Dates) Name:Sandra Conn Member ID:Not on file Relation to Subscriber:Not on file Name:SANDRA CONN Subscriber ID:Not on file (Home) Address: [address] [place] [address] Payer ID:Not on file Group ID:Not on file Type:Self Pay Address: [place] SELF PAY NO INSURANCE Member Subscriber Plan / Payer (Ef fective for All Dates) Name:Sandra Conn Member ID:Not on file Relation to Subscriber:Not on file Name:SENIASANDRA Subscriber ID:Not on file (Home) Address: [address] [place], [place] [id number] Payer ID:Not on file Group ID:Not on file Type:Self Pay Address: [place] * Guarantor: SANDRA CONN Account Type Relation to Patient Date of Phone Billing Address Personal/Family Spouse [facility] [place] [address] MEDICAID - OUT OF [facility] Care Teams Claims Associate Relationship Specialty Start Date End Date Claudio Valle MD PCP - General 02/07/18
--- OUTSIDE RECORDS SUMMARY | 2025-02-13 12:23 | XMS_ITS | Clinical Summary ---
Author Organization [facility] Address [facility] [place] [address] Care Team Providers Care Fuel Operator Name Role Phone Claudio Valle MD Primary Care Provider [phone] Allergies Active Allergy Reactions Criticality Noted Date [...] PRN; okay to follow with ECP at [facility] for contacts/glasses Anxiety with depression [...] Encounters Date Type Department Care Team Description 12/18/2024 9:15 AM CDT Procedure visit [facility] Medicine Ophthalmology [address] [place] [address] [address] [place] [phone] Neri Lopez MD Facial nerve spasm (Primary Dx) 11/24/2024 8:27 AM CDT - 11/24/2024 11:59 PM CDT Hospital Encounter [address] [address] Abnormal levels of other serum enzymes Discharge Disposition: Discharge to home or self care from Last 3 Months Immunizations Immunization Administration Dates Next Due Influenza, Quadrivalent, Spl it, Preservative Free, Intramuscular 02/04/2020 Surgical History Surgery Date Site/Laterality Comments MD DELIVERY ONLY Section - (Added by NADIA Conv) SECTION 04/09/2007 - 04/08/2008 SECTION 04/09/2011 [...] Peptic ulceration GERD (gastroesophageal reflu x disease) 2017 Family History Medical History Relation Name Comments [...] Frequency of Binge Drinking Not on file 0504/2018 Comments Unknown Sex and Gender Information Value Date Recorded Sex Assigned at Not on file Legal Sex Female 4:26 PM 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 PROFESSOR Gender Identity Female 10/09/2019 10:03 AM CDT Sexual Orientation Not on file Last Filed Vital Signs Vital Sign Reading Time Taken Comments Blood Pressure 108/64 03/02/2019 5:29 PM 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 PROFESSOR Pulse 68 03/02/2019 5:29 PM 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 PROFESSOR Temperature 36.7 C (98 F) 03/02/2019 5:29 PM 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 PROFESSOR Respiratory Rate - - Oxygen Saturation 99% 03/02/2019 5:29 PM 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 PROFESSOR Inhaled Oxygen Concentration - - Weight 66.2 [...] NERVE - OS - LEFT EYE Routine 12/18/2024 12:42 PM CDT Facial nerve spasm US ABDOMEN LIMITED Schedule Routine, Read Routine (OP Routine) 11/24/2024 8:48 AM CDT Abnormal levels of other serum enzymes HEPATITIS C ANTIBODY Routine Gen Lab 07/25/2017 12:22 PM CDT from Last 3 Months or Most Recently Relevant to Health Maintenance Results * Functional Injection, Botulinumtoxin - Facial Nerve - OS - Left Eye (12/18/2024 12:42 PM CDT) Anatomical Region Laterality Modality Head Other Narrative 12/18/2024 12:42 PM CDT Injection, Botulinumtoxin The injection site was prepped with a alcohol prep pad. Bacteriostatic saline at 5 units per 0.1ml. The medication administered today will not be billed to the patient or insurance. Post-op there were no complications during today's treatment. The patient received verbal post procedure care education. us Neri Lopez MD [facility] PROCEDURES Final Result * US Abdomen Limited (11/24/2024 8:48 AM CDT) Anatomical Region Laterality Modality Abdomen N/A Ultrasound 12/09/2024 1:30 AM CDT Narrative 12/09/2024 1:32 AM CDT EXAM DESCRIPTION: US ABDOMEN LIMITED REASON FOR STUDY: Abnormally elevated liver enzymes for 3 weeks. TECHNIQUE: Ultrasound of the right upper quadrant of the abdomen was performed with grayscale and color doppler. COMPARISON: 03/01/2019 FINDINGS: PANCREAS: Visualized portions of the pancreas are within normal limits. Portions of the pancreatic body and tail are obscured due to bowel gas. LIVER: The liver appears normal in echotexture and echogenicity. No focal lesion identified. The main portal vein is patent with antegrade flow. GALLBLADDER: Gallbladder surgically absent. BILIARY: There is no intrahepatic or extrahepatic biliary ductal dilatation. Common bile duct measures 6 mm in diameter. RIGHT KIDNEY: Normal size. Normal echogenicity. No solid mass or cyst. No hydronephrosis. Measures 11.4 cm in length. OTHER: No other significant findings. IMPRESSION: No acute abnormality. THIS IS AN ELECTRONICALLY VERIFIED FINAL REPORT 12/09/2024 1:32 AM - Electronically signed by Ramirez Stauffer M.D. KT T: Report ID: [id number] Reading Location: [id number] Procedure Note Ramirez Stauffer MD - 12/09/2024 EXAM DESCRIPTION: US ABDOMEN LIMITED REASON FOR STUDY: Abnormally elevated liver enzymes for 3 weeks. TECHNIQUE: Ultrasound of the right upper quadrant of the abdomen wasperformed with grayscale and color doppler. COMPARISON: 03/01/2019 FINDINGS: PANCREAS: Visualized portions of the pancreas are withinnormal limits. Portions of the pancreatic body and tail are obscured due to bowel gas. LIVER: The liver appears normal in echotexture and echogenicity. Nofocal lesion identified. The main portal vein is patent with antegrade flow. GALLBLADDER: Gallbladder surgically absent. BILIARY: There is no intrahepatic or extrahepatic biliary ductaldilatation. Common bile duct measures 6 mm in diameter. RIGHT KIDNEY: Normal size. Normal echogenicity. No solid mass or cyst.No hydronephrosis. Measures 11.4 cm in length. OTHER: No other significant findings. IMPRESSION: No acute abnormality. THIS IS AN ELECTRONICALLY VERIFIED FINAL REPORT 12/09/2024 1:32 AM - Electronically signed by Ramirez Stauffer M.D. KT T: Report ID: [id number] Reading Location: [place] [address] us Kayleigh Pantoja NP IMG US PROCEDURES Final Result * Hepatitis C antibody (07/25/2017 12:22 PM CDT) Hep C Ab Nonreactive Nonreactive [facility] Comment: Interpretive Data Positive and greyzone results should be confirmed by a molecular method. If positive or greyzone, a second separately collected sample should be submitted for Hepatitis C Virus RNA. Detection and Quantitation by Real-Time Reverse Cleaner Wall-PCR.Current Interpretive data was last revised on 2016. Blood specimen (specimen) 07/25/2017 12:22 PM CDT 07/25/2017 2:06 PM CDT Narrative [facility] - 07/26/2017 9:17 AM CDT us Sofya Valentin NP LAB MICROBIOLOGY - GENERAL ORDERABLES Edited Result - Final [facility] Department [place] [address] from Last 3 Months or Most Recently Relevant to Health Maintenance Insurance COUNTS INCLUDE 234 BEDS AT THE [facility] CHOICE PLUS [facility] HMO/PPO Address: [address] [address] [place] [address] [facility] CHOICE PLUS [facility] HMO/PPO Address: [facility] [address] [place] [address] Care Teams Fuel Operator Relationship Specialty Start Date End Date Claudio Valle MD [address] [address] PCP - General Family Medicine 07/18/18
--- OUTSIDE RECORDS SUMMARY | 2025-02-13 13:28 | XMS_ITS | Clinical Summary ---
Author Organization [employer] [facility] Address [address] [facility] [place] [address] Care Team Providers Care Surveyor Rod Helper Name Role Phone Claudio Valle MD Primary Care Provider [phone] Source Comments [facility],non-owned Affiliates and Associated Physician Practices is amultiple site organization consisting of ambulatory clinics and hospital sitesin [place], [place] and [place]. This disclosure is being madepursuant to the Care Everywhere program and may not contain all information available regarding this patient. Last updated 17.[employer] Allergies No known active allergies Medications * [...] PRN; okay to follow with ECP at [facility] for contacts/glasses Anxiety with depression 05/29/2019 Attention [...] Department Care Team Description 02/09/2025 9:10 AM WIRING MECHANIC Office Visit [facility] [address] [place] [address] [place] [address] Wilmar Herbert MD Acne vulgaris (Primary Dx); [...] on file Legal Sex Female 5:05 AM WIRING MECHANIC Gender Identity Not on file Sexual Orientation Not on file Plan of Treatment Upcoming Encounters Date Type Department Care Team (Late st Contact Info) Description 08/10/2025 9:20 AM CDT Office Visit [facility] [address] [place] [address], [place] [address] Wilmar Herbert MD [address] [place] [address] [address] [place] [address] Health Maintenance Due Date Last Done Comments [...] patient's age to complete this topic Insurance [facility] SELF PAY NO INSURANCE Member Subscriber Plan / Payer (Ef fective for All Dates) Name:Sandra Conn Member ID:Not on file Relation to Subscriber:Not on file Name:SANDRA CONN Subscriber ID:Not on file (Home) Address: [address] [place] [phone] Payer ID:Not on file Group ID:Not on file Type:Self Pay Address: [place], [place] SELF PAY NO INSURANCE Member Subscriber Plan / Payer (Ef fective for All Dates) Name:Sandra Conn Member ID:Not on file Relation to Subscriber:Not on file Name:SANDRA CONN Subscriber ID:Not on file (Home) Address: [address] [place] [phone] Payer ID:Not on file Group ID:Not on file Type:Self Pay Address: [place] SELF PAY NO INSURANCE Member Subscriber Plan / Payer (Ef fective for All Dates) Name:Sandra Conn Member ID:Not on file Relation to Subscriber:Not on file Name:SANDRA CONN Subscriber ID:Not on file (Home) Address: [address] [place] [address] Payer ID:Not on file Group ID:Not on file Type:Self Pay Address: [place] SELF PAY NO INSURANCE Member Subscriber Plan / Payer (Ef fective for All Dates) Name:Sandra Conn Member ID:Not on file Relation to Subscriber:Not on file Name:SENIASANDRA Subscriber ID:Not on file (Home) Address: [address] [place], [place] [id number] Payer ID:Not on file Group ID:Not on file Type:Self Pay Address: [place], [place] * Guarantor: SANDRA CONN Account Type Relation to Patient Date of Phone Billing Address Personal/Family Spouse [facility] [place] [address] MEDICAID - OUT OF [facility] Care Teams Surveyor Rod Helper Relationship Specialty Start Date End Date Claudio Valle MD PCP - General 02/07/18
--- OUTSIDE RECORDS SUMMARY | 2025-02-13 13:29 | XMS_ITS | Clinical Summary ---
Author Organization [facility] Address [facility] [place] [address] Care Team Providers Care Telephone Exchange Operator Name Role Phone Claudio Valle MD Primary Care Provider [phone] Allergies Active Allergy Reactions Criticality Noted Date [...] PRN; okay to follow with ECP at [facility] for contacts/glasses Anxiety with depression 05/29/2019 [...] Description 12/18/2024 9:15 AM CDT Procedure visit [facility] Medicine Ophthalmology [address] [place] [address] [address] [place] [id number] Neri Lopez MD Facial nerve spasm (Primary Dx) 11/24/2024 8:27 AM CDT - 11/24/2024 11:59 PM CDT Hospital Encounter [address] [address] Abnormal levels of other serum enzymes Discharge Disposition: Discharge to home or self care from Last 3 Months Immunizations Immunization Administration Dates Next Due Influenza, Quadrivalent, Spl it, Preservative Free, Intramuscular 02/04/2020 Surgical History Surgery Date Site/Laterality Comments [facility] DELIVERY ONLY Section - (Added by NADIA [...] on file Legal Sex Female 4:26 PM CIVIL 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 us Neri Lopez MD [facility] PROCEDURES Final Result * US [...] Ramirez Stauffer M.D. KT T: Report ID: [id number] Reading Location: [id number] Procedure Note Ramirez Stauffer MD - 12/09/2024 [...] Ramirez Stauffer M.D. KT T: Report ID: [id number] Reading Location: [place] [address] us Kayleigh Pantoja NP IMG US PROCEDURES Final Result * Hepatitis C antibody (07/25/2017 12:22 PM CDT) Hep C Ab Nonreactive Nonreactive [facility] Comment: Interpretive Data Positive and greyzone results should be confirmed by a molecular method. If positive or greyzone, a second separately collected sample should be submitted for Hepatitis C Virus RNA. Detection and Quantitation by Real-Time Reverse Multiple Needle Stitcher-PCR.Current Interpretive data was last revised on 2016. Blood specimen (specimen) 07/25/2017 12:22 PM CDT 07/25/2017 2:06 PM CDT Narrative [facility] - 07/26/2017 9:17 AM CDT us Sofya Valentin NP LAB MICROBIOLOGY - GENERAL ORDERABLES Edited Result - Final [facility] Department [place] [address] from Last 3 Months or Most Recently Relevant to Health Maintenance Insurance [employer] [place] [address] Care Teams Telephone Exchange Operator Relationship Specialty Start Date End Date Claudio Valle MD [address] [address] PCP - General Family Medicine 07/18/18
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
[2025-02-13] MEDS: CYCLOBENZAPRINE HCL 5 MG TABLET PO (14:09)
[2025-02-13 14:31] VITALS: BP 122/72; PULSE 63; RESP 18; O2SAT 100
== END 2025-02-13 14:32 | disposition home or self-care (01) ==
PROVIDERS: Emergency Provider Physician Assistant; PCP Nurse Practitioner Family
DX: S16.1XXA Strain of muscle, fascia and tendon at neck level, initial encounter (principal); S39.012A Strain of muscle, fascia and tendon of lower back, initial encounter; R73.03 Prediabetes; E61.1 Iron deficiency; E03.9 Hypothyroidism, unspecified; E66.3 Overweight; Z68.25 Body mass index [BMI] 25.0-25.9, adult; K58.2 Mixed irritable bowel syndrome; F17.210 Nicotine dependence, cigarettes, uncomplicated; F17.290 Nicotine dependence, other tobacco product, uncomplicated; Z87.01 Personal history of pneumonia (recurrent); Z86.0101 Personal history of adenomatous and serrated colon polyps; Z90.49 Acquired absence of other specified parts of digestive tract; Z79.899 Other long term (current) drug therapy; M47.814 Spondylosis without myelopathy or radiculopathy, thoracic region; M47.816 Spondylosis without myelopathy or radiculopathy, lumbar region; V49.40XA Driver injured in collision with unspecified motor vehicles in traffic accident, initial encounter
CPT/HCPCS: 70450; 72125; 72128; 72131; 99284; A9270